=== PATIENT | female | born 1925 | race Caucasian/White ===

== ENCOUNTER 2016-06-20 21:51 | Observation (INO) | payer MEDICARE, BC ==
[2016-06-20 22:30] LABS: Hematocrit 32.9 % (37.0-47.0); Hemoglobin 10.9 gm/dL (12.5-16.0); Mean Cell Volume 89.9 fl (78-100); Mean Corpuscular Hemoglobin 29.8 pg (27-31); Mean Corpuscular Hgb Conc 33.1 g/dl (32-36); Neutrophil # 3.2 K/mm3 (1.3-6.0); Platelet Count 168 K/mm3 (150-450); Red Blood Count 3.66 M/mm3 (4.2-5.4); Red Cell Distribution Width 12.8 % (11.5-14.0); White Blood Count 5.2 K/mm3 (4.0-10.5)
--- NOTE | 2016-06-20 22:32 | ERNOTE ---
Head Injury HPI - Narrative Date of Service: 06/20/16 - General Time Seen by Provider: 06/20/16 21:58 - Immun/Allergies/Home Medications Immunization: IMMUNIZATION HX Immunizations Up to Date Yes History of Influenza Vaccine Yes Hx Pneumococcal Vaccination No Allergies/Adverse Reactions: Allergies Allergy/AdvReac Type Severity Reaction Status Date / Time morphine Allergy Verified 06/20/16 22:06 propoxyphene napsylate Allergy Verified 06/20/16 22:06 [From [facility]] Home Medications: HOME MEDICATIONS Aspirin [Brant Chewable Aspirin] 81 mg PO DAILY 11/07/14 [Last Taken Unknown] Cholecalciferol [Vitamin D] 5,000 unit PO DAILY 11/07/14 [Last Taken Unknown] Metoprolol Succinate [Toprol Xl] 50 mg PO BID 11/07/14 [Last Taken Unknown] Acetaminophen [Tylenol] 1 - 2 tab PO Q4H PRN 01/23/15 [Last Taken Unknown] Losartan Potassium [Cozaar] 100 mg PO HS 01/23/15 [Last Taken Unknown] Omeprazole [Prilosec] 40 mg PO DAILY 12/21/15 [Last Taken Unknown] metFORMIN HCL [Glucophage] 1,000 mg PO BIDWM 12/21/15 [Last Taken Unknown] Beta-Carotene(A) W-C , E/Min [Ocuvite] 1 tab PO BID 06/20/16 [Last Taken Unknown ] Betamethasone Dipropionate 1 appl TP 2XW 06/20/16 [Last Taken Unknown] Calcium Carbonate [Tums] 500 mg PO Q2H PRN 06/20/16 [Last Taken Unknown] Mirabegron [Myrbetriq] 25 mg PO DAILY 06/20/16 [Last Taken Unknown] Nystatin 15 gm TP PRN PRN 06/20/16 [Last Taken Unknown] Polyethylene Glycol 3350 [Miralax] 17 gm PO TID 06/20/16 [Last Taken Unknown] Propylene Glycol/Peg 400 [Systane 0.3-0.4% Eye Drops] 1 drop EACHEYE BID [Last Taken Unknown] traZODone HCL [Desyrel] 100 mg PO HS 06/20/16 [Last Taken Unknown] - History of Present Illness Narrative: STATES SHE WAS 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 SHE DENIES LOC OR NECK PAIN OR ANY N & V. SHE DENIES OTHER INJURY. THE GROUP HOME STAFF THOUGHT SHE HAD A LITTLE SLURRED SPEECH WHICH SHE DENIES. SHE SAYS SHE HAS BEEN FEELING WEAK AND TIRED FOR THE PAST 3 WEEKS. HER PCP DX'D HER WITH UTI AND THIS PAST WEEK SHE WENT TO SEE THE UROLOGIST WHO TOLD HER HER URINE WAS CLEAR (21 MAY 2016 = NORMAL URINE ) AND HE ORDERED A CT ABD/ PEL WHICH SHE HAD DONE YESTERDAY. SHE DOES NOT KNOW RESULTS ( IT SHOWED POSSIBLE NEW COLON LESION SUSPICIOUS FOR NEOPLASM AT HEPATIC FLEXURE) DR Everton MATHIAS WAS SUPPOSED TO FOLLOW UP WITH HER ON THE RESULTS. SHE DENIES ANY RECENT MEDICATION CHANGES OR OTHER SPECIFIC COMPLAINTS. Occurred: just prior to arrival Location Occurred: home - [facility]IV[facility] Head Injury Location: frontal Method of Injury: Reports: fell Reason for Fall: Reports: slipped Loss of Consciousness: Reports: no loss of consciousness Associated Symptoms: Reports: denies symptoms Review of Systems - Review of Systems Constitutional: Present: See HPI, weakness, fatigue EYE: Present: no symptoms reported ENT: Present: no symptoms reported Respiratory: Present: no symptoms reported Cardiology: Present: no symptoms reported Gastrointestinal/Abdominal: Present: no symptoms reported Genitourinary: Present: no symptoms reported, See HPI Musculoskeletal: Present: no symptoms reported Skin: Present: other - NEW FOREHEAD HEMATOMA Neurological: Present: See HPI. Absent: dizziness/light-headedness, weakness, numbness, tingling Endocrine: Present: no symptoms reported Hematologic/Lymphatic: Present: no symptoms reported Psych: Present: no symptoms reported All Other Systems: All systems neg except as marked - Patient's Past Medical History Patient History - Medical: Anxiety, Diabetes Type 2, Depression, GERD, Hypothyroidism, Osteoarthritis, Osteoporosis, Renal Disease, UTI'S Patient History - Cardiac/Respiratory: Bronchitis, Hypertension, Hyperlipidemia Patient History - Cancer: Colon Patient History - Surgical Procedures: Appendectomy, Colon Resection, Hysterectomy, Total Knee Replacement, T & A Patient History - Other: None LMP (females 10-50): Menopausal - Family History Mother Family History - Medical: , Diabetes Type 2 Father Family History - Medical: Family History - Cardiac/Respiratory: Coronary Heart Disease - Social History Living Situations: assisted living Psych History: Hx of Anxiety, Hx of Depression Alcohol Use: none Drug Use: none - Immunizations Immunizations Up to Date: Yes Hx Pneumococcal Vaccination: No History of Influenza Vaccine: Yes Physical Exam - Physical Exam General Appearance: Present: wd/wn, alert, no apparent distress, other - PT IS A & O X 3. SHE IS A FRAIL ELDERLY 89 YO LADY WHO IS JOKING ABOUT JUST HAVING HER 24ND BIRTHDAY, SHE WAS BORN ON May. Eye Exam: Normal inspection: bilateral, PERRL: bilateral, EOMI: bilateral Ears, Nose, Throat: Present: normal ENT inspection, normal pharynx Neck: Present: normal inspection, nontender Respiratory: Present: no respiratory distress, normal breath sounds, no accessory muscle use, chest nontender, lungs clear Cardiovascular/Chest: Present: regular rate, rhythm, no murmur, normal peripheral pulses Gastrointestinal/Abdominal: Present: normal bowel sounds, nontender, nondistended, soft, no organomegaly Back Exam: Present: no vertebral tenderness Extremity Exam: Present: normal inspection, non-tender, normal range of motion, no edema, other - SHE DOES HAVE RECENT , BUT NOT ACUTE, SUPERFICIAL ABRASION TO RIGHT PATELLA Neurological Exam: Present: alert, oriented, normal mood/affect, no motor/ sensory deficits, 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 NO BLEEDING. ED Progress - Results and Orders Patient's Lab Results:: I have reviewed the patient's lab results. Results and Orders: Hgb is 10.9 which is lower than her most recent values in 03/2016 ( 13) and 2016 ( 11.7). Current K+ = 5.4 with bun/creat = 32/1.58 and TSH = sl . elevated at 4.03 - Vital Signs Vital Signs: Vital Signs 06/20/16 06/20/16 21:51 22:06 Temperature 36.4 C L Pulse Rate 73 80 Respiratory 18 Rate Blood Pressure 146/53 O2 Sat by Pulse 95 Oximetry - CT/Ultrasound CT/Ultrasound Narrative: HEAD CT = NEGATIVE FOR ACUTE ABNORMALITIES IS HER CERVICAL CT. - Progress/Reassessment Chief Complaint: Head Injury Progress:: Unchanged Plan - Plan Plan: D/W HOSPITALIST , DR MUNROE , FOR OBS ADMIT , WILL GIVE IV N.S. AND PLAN IS TO FOLLOW HER CLOSED HEAD INJURY AND RECHECK HER BMP TO SEE IF K+ AND BUN/CREAT IMPROVE WITH HYDRATION. I EXPLAINED THIS TO THE PT. ( I HAVE NOT MENTIONED THE ABD CT FINDINGS TO THE PT THOUGH HOSPITALIST IS AWARE. Departure Clinical Impression: Acute hyperkalemia, Azotemia, Anemia Head contusion Qualifiers: Encounter type: initial encounter Contusion of head detail: other part of head Qualified Code(s): S00.83XA - Contusion of other part of head, initial encounter - Departure Disposition: [facility] Condition: Fair Referrals: Selma Martinez DO [Staff Physician] -
[2016-06-20 22:55] LABS: Albumin * 3.5 gm/dl (3.4-5.0); Anion Gap 16.7 mmol/L (6.8-13.8); BUN/Creatinine Ratio 20.3 (9.0-21.6); Bilirubin, Total 0.3 mg/dL (0.0-1.1); Ca. Corrected For Albumin 9.1 mg/dL (8.4-10.2); Carbon Dioxide 22.7 mmol/L (24-32.6); Potassium 5.4 mmol/L (3.4-4.6); TSH * 4.036 uIU/mL (0.358-3.74); Total Protein 6.4 gm/dL (6.2-8.2)
[2016-06-21 00:07] LABS: Urine Bilirubin Negative (NEGATIVE); Urine Blood Negative /ul (NEGATIVE); Urine Ketone 5 mg/dL (NEGATIVE); Urine Nitrite Negative (NEGATIVE); Urine Protein Negative (NEGATIVE); Urine Specific Gravity 1.025 SP.GR. (1.005-1.010); Urine Urobilinogen Normal (NORMAL); Urine pH 5.5 pH (5.0-7.0)
--- OUTSIDE RECORDS SUMMARY | 2016-06-21 00:09 | XMS REPORT | Continuity of Care Document ---
:1925 Demographics Phone Unavailable Preferred Language Unknown Marital Status Unknown Confucianist Affiliation Unknown Race Unknown Ethnic Group Unknown Author Organization [facility] ([facility]) Address [place] [address] Phone [phone] Care Team Providers Name Role Phone Unavailable Primary Care Provider Unavailable Source Comments This disclosure is being made pursuant to the Care Everywhere program, applicable federal and state laws, and may not contain all informaitonavailable regarding this patient.[facility] ([facility]) Active Allergies and Adverse Reactions Not on File Current Medications Not on file Active Problems Not on file Social History Tobacco Use Types Packs/Day Years Used Date Never Assessed Plan of Care Health Maintenance Due Date Last Done Comments Hepatitis B Vaccine (1 of 3 - Primary Series) 1925 Tdap Vaccine 06/16/1938 Lipid Disorder Screening 06/16/1945 Td Vaccine 06/16/1945 Zoster Vaccine 1987 Pneumococcal Vaccine (1 of 2 - PCV13) 06/16/1992 Influenza Vaccine: Seasonal (#1) 11/18/2015 Results from Last 3 Months Not on file
--- OUTSIDE RECORDS SUMMARY | 2016-06-21 00:09 | XMS REPORT | Continuity of Care Document ---
:1925 Author Organization [facility] [place] [address] Care Team Providers Name Role Phone Marianne Tiffany M Primary Care Provider [phone] Source Comments This disclosure is being made pursuant to the [employer] program and maynot contain all information available regarding this patient.[facility] Active Allergies and Adverse Reactions No Known Allergies Current Medications Be aware that medications may not be up to date as of this document. Alwaysverify current medications with the patient. Prescription Sig. Disp. Refills Start Date End Date Status Ascorbic Acid (VITAMIN C) Take 500 mg by Active 500 MG tablet mouth daily. aspirin 81 MG tablet Take 81 mg by Active mouth daily. glucose blood test strip REAGENT STRIPS Active TESTS BID conjugated estrogens Place vaginally. Active (PREMARIN) vaginal cream dexlansoprazole (DEXILANT) Take 60 mg by Active 60 MG capsule mouth daily. diphenhydrAMINE (BENADRYL) Take 25 mg by Active 25 MG tablet mouth. One every 6 hours po prn ferrous sulfate 325 (65 Take by mouth Active FE) MG TABS tablet daily. SEAN MICROLET LANCETS MICROLET LANCETS Active lancets TESTING BID losartan-hydrochlorothiazi Take by mouth Active de (HYZAAR) 50-12.5 MG per daily. tablet metFORMIN (GLUCOPHAGE) 850 Take 850 mg by Active MG tablet mouth 2 (two) times daily. metoprolol tartrate Take 25 mg by Active (LOPRESSOR) 25 MG tablet mouth daily. potassium chloride Take 10 mEq by Active (MICRO-K) 10 MEQ CR mouth daily. capsule simvastatin (ZOCOR) 40 MG Take 40 mg by Active tablet mouth daily. dabigatran (PRADAXA) 150 Take 100 mg by Active MG capsule mouth. Cholecalciferol (VITAMIN D Take by mouth. Active PO) vitamin E 100 UNIT capsule Take by mouth. Active vitamin B-12 Inject as Active (CYANOCOBALAMIN) 1000 directed. MCG/ML injection SitaGLIPtin Phosphate Take by mouth. Active (JANUVIA PO) sitaGLIPtin (JANUVIA) 100 Take 100 mg by Active MG tablet mouth daily. Active Problems No known active problems Most Recent Encounters Date Type Specialty Providers Description 04/02/2016 Data Import Immunizations Name Dates Previously Given Next Due Influenza Split 02/08/2014,12/19/2011 Pneumococcal Polysaccharide-23 04/19/2007 Social History Tobacco Use Types Packs/Day Years Used Date Never Smoker Smokeless Tobacco: Never Used Last Filed Vital Signs Vital Sign Reading Time Taken Blood Pressure 121/64 03/06/2014 10:28 AM LABOR ECONOMIST Pulse 60 03/06/2014 10:28 AM LABOR ECONOMIST Temperature - - Respiratory Rate - - Height 1.524 m (5') 03/06/2014 10:28 AM LABOR ECONOMIST Weight 58.832 kg (129 lb 11.2 oz) 03/06/2014 10:28 AM LABOR ECONOMIST Body Mass Index 25.33 03/06/2014 10:28 AM LABOR ECONOMIST Oxygen Saturation - - Plan of Care Health Maintenance Due Date Last Done Comments Eye (Ophthalmology) Exam 06/16/1937 Foot Exam 06/16/1937 Lab-Urine Microalbumin 06/16/1937 Tetanus/Pertussis (1 - Tdap) 06/16/1946 Well Adult Visit 06/16/1977 Zoster Vaccine 60+ 1987 Bone Density 06/16/1992 Pneumococcal Low/Medium Risk 65+ (2 04/19/2008 04/19/2007 of 2 - PCV13) LAB-HgA1C 08/22/2014 02/22/2014, 01/25/2014, 08/21/2013 Lab-Lipids 01/25/2015 01/25/2014 Influenza Immunization (#1) 2015 02/08/2014, 12/19/2011 Results from Last 3 Months Not on file
[2016-06-21 00:16] LABS: Urine Appearance Clear; Urine Bacteria None Seen; Urine Color Yellow; Urine RBC 0-5 /hpf (0-5); Urine WBC 0-5 /hpf (0-5)
[2016-06-21] MEDS: NORMAL SALINE 1,000 ML IV PRN ×2 (01:09→09:41)
--- NOTE | 2016-06-21 01:35 | HP ---
Chief Complaint - Chief Complaint Date of Service: 06/21/16 Time of Service: 01:02 Chief Complaint: Head contusion History of Present Illness: 89 years old female adm to the hospital with reports of head contusion s/p fall at assisted living facility. pt stated she have been very lethargic x 3-4 weeks. Due to generalized weakness she belief that was the reason she fell. She report frontal head pain with hematoma, dizziness and denies LOC, seizure activist, headache, chest pain blurred vision or palpitation. Pt stated for the past 3 weeks she had no appetite and her abdomen haven't been feeing well. She was seen by urologist for follow Up from UTI and was schedule for CT. On 06/19/16 CT Abdomen and pelvic: Early apple core lesion within the proximal hepatic flexure, concerning for early neoplasm. PMH significant for colon cancer in 2013 had colon resection, iron deficiency anemia with hgb gradually trending down since 04/03. 04/03 Hgb 13.0--->05/05 hgb 11.7---->07/03 hgb10.9. Hypertension, diabetes, hyperlipidemia, depression , GERD and UTI. In ER TSH 4.0 off baseline of 2.2 back in 05/05. Plan for out-pt follow up with GI service for colonoscopy. Plan of care discussed with pt she verbalized understanding and agree. - Patient's Past Medical History Patient History - Medical: Anemia - iron deficiency, Anxiety, Diabetes Type 2, Depression, GERD, Hypothyroidism, Osteoarthritis, Osteoporosis, Renal Disease, UTI'S, Other - candidal intertrigo, chronic constipation, lichen sclerosus Patient History - Cardiac/Respiratory: Bronchitis, Hypertension, Hyperlipidemia Patient History - Cancer: Colon Patient History - Surgical Procedures: Appendectomy, Colon Resection - 2013, Hysterectomy, Total Knee Replacement - Left knee, tonsillectomy, vulvar biopsy, T & A Patient History - Other: None LMP (females 10-50): Menopausal - Family History Mother Family History - Medical: , Diabetes Type 2 Father Family History - Medical: Family History - Cardiac/Respiratory: Coronary Heart Disease - Social History Living Situations: assisted living Psych History: Hx of Anxiety, Hx of Depression Smoking Status: Never smoker Have you smoked in the past 12 months: No Do you dip or chew tobacco: No Patient requests Smoking Cessation Consult: No Initiate information on Smoking Cessation: No Alcohol Use: none Drug Use: none - Immunizations Immunizations Up to Date: Yes Hx Pneumococcal Vaccination: No History of Influenza Vaccine: Yes Review Of Systems (GEN) - Review of Systems Generalized/Overall Review: Present: No Symptoms Reported EENTM: Present: Other - Hard of hearing Respiratory: Present: No Symptoms Reported Cardiac: Present: No Symptoms Reported Abdominal: Present: No Symptoms Reported Genitourinary: Present: No Symptoms Reported Musculoskeletal: Present: No Symptoms Reported Neurological: Present: No Symptoms Reported Skin: Present: Other - frontal hematoma Endocrine: Present: No Symptoms Reported Immunizations: IMMUNIZATION HX Immunizations Up to Date Yes History of Influenza Vaccine Yes Hx Pneumococcal Vaccination No Allergies/Adverse Reactions: Allergies Allergy/AdvReac Type Severity Reaction Status Date / Time morphine Allergy Verified 06/20/16 22:06 propoxyphene napsylate Allergy Verified 06/20/16 22:06 [From [facility]] Home Medications: HOME MEDICATIONS Aspirin [Brant Chewable Aspirin] 81 mg PO DAILY 11/07/14 [Last Taken Unknown] Cholecalciferol [Vitamin D] 5,000 unit PO DAILY 11/07/14 [Last Taken Unknown] Metoprolol Succinate [Toprol Xl] 50 mg PO DAILY 11/07/14 [Last Taken Unknown] Acetaminophen [Tylenol] 1 - 2 tab PO Q4H PRN 01/23/15 [Last Taken Unknown] Losartan Potassium [Cozaar] 100 mg PO HS 01/23/15 [Last Taken Unknown] Omeprazole [Prilosec] 40 mg PO BID 12/21/15 [Last Taken Unknown] metFORMIN HCL [Glucophage] 1,000 mg PO BIDWM 12/21/15 [Last Taken Unknown] Beta-Carotene(A) W-C , E/Min [Ocuvite] 1 tab PO BID 06/20/16 [Last Taken Unknown ] Betamethasone Dipropionate 1 appl TP 3XW 06/20/16 [Last Taken Unknown] Calcium Carbonate [Tums] 500 mg PO Q2H PRN 06/20/16 [Last Taken Unknown] Mirabegron [Myrbetriq] 25 mg PO DAILY 06/20/16 [Last Taken Unknown] Nystatin 15 gm TP PRN PRN 06/20/16 [Last Taken Unknown] Polyethylene Glycol 3350 [Miralax] 17 gm PO TID PRN 06/20/16 [Last Taken Unknown ] Propylene Glycol/Peg 400 [Systane 0.3-0.4% Eye Drops] 1 drop EACHEYE BID [Last Taken Unknown] traZODone HCL [Desyrel] 100 mg PO HS 06/20/16 [Last Taken Unknown] Exam - Exam Vital Signs: Vital Signs - Last Taken Temp 36.3 C L 06/21/16 00:17 Pulse 71 06/21/16 00:17 Resp 20 06/21/16 00:17 BP 149/54 06/21/16 00:17 Pulse Ox 97 06/21/16 00:17 Constitutional: Present: Alert, Oriented x3, Cooperative, Well developed, No distress, Elderly ENT Exam: Present: hard of hearing Eye Exam: bilateral eye: PERRL Neck: Present: non-tender, full range of motion Back Exam: Present: no CVA tenderness Breasts: Present: Exam deferred Respiratory: Present: chest non-tender, lungs clear, normal breath sounds, no respiratory distress Cardiovascular/Chest: Present: normal peripheral pulses, regular rate, rhythm, no chest tenderness, no edema Peripheral Pulses: dorsalis-pedis (R): 3+, dorsalis-pedis (L): 3+ Abdomen: Present: Normal bowel sounds, soft, nontender, nondistended, no rebound tenderness /Rectal: Present: Exam deferred Extremity: Present: normal range of motion, non-tender, normal inspection, no pedal edema, no calf tenderness Skin Exam: Present: warm/dry, no cyanosis, other - frontal hematoma Neurologic: Present: oriented x 3 Appearance: Present: appropriate appearance Eye contact: Present: cooperative, good eye contact Thoughts: Present: normal thought pattern Diagnostic Studies: Laboratory Results WBC 5.2 K/mm3 (4.0-10.5) 06/20/16 22:18 RBC 3.66 M/mm3 (4.2-5.4) L 06/20/16 22:18 Hgb 10.9 gm/dL (12.5-16.0) L 06/20/16 22:18 Hct 32.9 % (37.0-47.0) L 06/20/16 22:18 MCV 89.9 fl (78-100) 06/20/16 22:18 MCH 29.8 pg (27-31) 06/20/16 22:18 MCHC 33.1 g/dl (32-36) 06/20/16 22:18 RDW 12.8 % (11.5-14.0) 06/20/16 22:18 Plt Count 168 K/mm3 (150-450) 06/20/16 22:18 MPV 9.0 fl (6.0-9.5) 06/20/16 22:18 Immature Gran % (Auto) 0.40 % (0.001-0.429) 06/20/16 22:18 Immature Gran # (Auto) 0.02 K/mm3 (0.000-0.0310) 06/20/16 22:18 Neutrophils % 61.0 % (42-75.0) 06/20/16 22:18 Lymphocytes % 28.4 % (20-51) 06/20/16 22:18 Monocytes % 6.3 % (0.0-9) 06/20/16 22:18 Eosinophils % 3.5 % (0.0-3.0) H 06/20/16 22:18 Basophils % 0.4 % (0.0-1.0) 06/20/16 22:18 Nucleated RBC % 0.0 k/mm3 (0-1) 06/20/16 22:18 Neutrophils # 3.2 K/mm3 (1.3-6.0) 06/20/16 22:18 Lymphocytes # 1.5 k/mm3 (1.5-3.5) 06/20/16 22:18 Monocytes # 0.3 k/mm3 (0.0-1.0) 06/20/16 22:18 Eosinophils # 0.2 k/mm3 (0.0-0.7) 06/20/16 22:18 Absolute Basophils 0.0 k/mm3 (0.0-0.1) 06/20/16 22:18 Sodium 137 mmol/L (132-142) 06/20/16 22:25 Plasma Sodium 137 mmol/L (130-142) 06/20/16 22:25 Potassium 5.4 mmol/L (3.4-4.6) H 06/20/16 22:25 Chloride 103 mmol/L (97-106) 06/20/16 22:25 Carbon Dioxide 22.7 mmol/L (24-32.6) L 06/20/16 22:25 Anion Gap 16.7 mmol/L (6.8-13.8) H 06/20/16 22:25 BUN 32 mg/dL (3-23) H 06/20/16 22:25 Creatinine 1.58 mg/dL (0.4-1.4) H D 06/20/16 22:25 Est GFR (Non-Af Amer) 33 mL/min (60-130) L D 06/20/16 22:25 BUN/Creatinine Ratio 20.3 (9.0-21.6) 06/20/16 22:25 Random Glucose 122 mg/dL (70-110) H 06/20/16 22:25 Calcium 9.0 mg/dL (7.9-10.9) 06/20/16 22:25 Calcium Adj for Albumin 9.1 mg/dL (8.4-10.2) 06/20/16 22:25 Total Bilirubin 0.3 mg/dL (0.0-1.1) 06/20/16 22:25 AST 16 U/L (0-48) 06/20/16 22:25 ALT 28 U/L (19-67) 06/20/16 22:25 Alkaline Phosphatase 56 U/L (50-170) 06/20/16 22:25 Total Protein 6.4 gm/dL (6.2-8.2) 06/20/16 22:25 Albumin 3.5 gm/dl (3.4-5.0) 06/20/16 22:25 TSH 4.036 uIU/mL (0.358-3.74) H 06/20/16 22:25 Urine Color Yellow 06/20/16 23:58 Urine Appearance Clear 06/20/16 23:58 Urine pH 5.5 pH (5.0-7.0) 06/20/16 23:58 Ur Specific Corrigan 1.025 SP.GR. (1.005-1.010) 06/20/16 23:58 Urine Protein Negative mg/dL (NEGATIVE) 06/20/16 23:58 Urine Glucose (UA) Negative mg/dL (NEGATIVE) 06/20/16 23:58 Urine Ketones 5 mg/dL (NEGATIVE) 06/20/16 23:58 Urine Blood Negative /ul (NEGATIVE) 06/20/16 23:58 Urine Nitrate Negative (NEGATIVE) 06/20/16 23:58 Urine Bilirubin Negative mg/dl (NEGATIVE) 06/20/16 23:58 Urine Urobilinogen Normal EU/dl (NORMAL) 06/20/16 23:58 Ur Leukocyte Esterase Negative /ul (NEGATIVE) 06/20/16 23:58 Urine RBC 0-5 /hpf (0-5) 06/20/16 23:58 Urine WBC 0-5 /hpf (0-5) 06/20/16 23:58 Ur Epithelial Cells 0-5 /hpf (0-5) 06/20/16 23:58 Urine Bacteria None seen (NONE) 06/20/16 23:58 Urine Culture Comments No culture indicated 06/20/16 23:58 Assessment/Plan - Narrative Narrative: Head contusion S/P fall at assisted living facility CT head: No acute intra -cranial abnormality CT Cervical spine: pending Neuro check Q4hrs Hyperkalemia- secondary to azotemia On adm K+ 5.4, BUn/ cre 32/1.6 elevated from pt baseline on last adm IVF rehydration Monitor BMP in am Anemia- pt with reports of increase lethargia x3 weeks 04/03 Hgb 13.0--->05/05 hgb 11.7--->07/03 hgb 10.9 Hypertension On adm BP 149/54 Monitor vitals signs may resume home dose of medications Diabetes Consistent carb diet Acc-check AC+Hs and low dose SSI May resume home dose of medications 04/2016---> A1C 9 Colon cancer 2013 S/P colon resection 06/2016 CT Abd pelvic: Probable early apple core lesion within the proximal hepatic flexure, concerning for early neoplasm Consult GI service for possible out-pt colonoscopy ? Hypothyroidism on adm TSH 4.0 last adm TSH was 2.24 Repeat TSH and T4 in am Code status : VTE ppx: SCD and ambulate GI ppx: protonix Anticipate discharge 0-1 day and follow up with Dr Moncada and . Need colonoscopy Time 35 minutes - Assessment/Plan (1) Head contusion Problem: Acute Qualifiers: Encounter type: initial encounter Contusion of head detail: other part of head Qualified Code(s): S00.83XA - Contusion of other part of head, initial encounter (2) Acute hyperkalemia Problem: Acute (3) Anemia Problem: Chronic Qualifiers: Anemia type: iron deficiency (4) Azotemia Problem: Acute (5) Diabetes mellitus, type II Problem: Chronic (6) Hypertension Problem: Chronic Qualifiers: Hypertension type: essential hypertension Qualified Code(s): I10 - Essential (primary) hypertension
[2016-06-21] MEDS ORDERED: NYSTATIN 15 APPL BTL TP PRN (03:09)
[2016-06-21] MEDS ORDERED: CALCIUM CARBONATE 500 MG TAB.CHEW PO PRN (03:09)
[2016-06-21] MEDS ORDERED: POLYETHYLENE GLYCOL 3350 119 GM BTL PO PRN ×2 (03:30→12:14)
[2016-06-21 05:57] LABS: Albumin * 3.1 gm/dl (3.4-5.0); Anion Gap 14.9 mmol/L (6.8-13.8); BUN/Creatinine Ratio 19.9 (9.0-21.6); Bilirubin, Total 0.4 mg/dL (0.0-1.1); Ca. Corrected For Albumin 9.2 mg/dL (8.4-10.2); Calcium * 8.8 mg/dL (7.9-10.9); Carbon Dioxide 24.3 mmol/L (24-32.6); Potassium 5.2 mmol/L (3.4-4.6); T4 Free * 1.06 ng/dL (0.76-1.46); TSH * 2.978 uIU/mL (0.358-3.74); Total Protein 5.8 gm/dL (6.2-8.2)
[2016-06-21] MEDS: PANTOPRAZOLE SODIUM 40 MG TABLET.EC PO SCH ×2 (06:50→17:17)
[2016-06-21] MEDS: INSULIN LISPRO 100 UNITS/ML VIAL SC SCH ×3 (06:50→17:14)
[2016-06-21] MEDS ORDERED: BETA-CAROTENE(A) W-C , E/MIN 1 TAB TABLET PO SCH (09:00)
[2016-06-21] MEDS ORDERED: POLYVINYL ALCOHOL 150 DROP BTL EACHEYE SCH ×2 (09:00→21:00)
[2016-06-21] MEDS ORDERED: METOPROLOL SUCCINATE 25 MG TABLET.SA PO SCH (09:00)
[2016-06-21] MEDS ORDERED: CHOLECALCIFEROL 5,000 UNIT TABLET PO SCH (09:00)
[2016-06-21 12:21] LABS: Anion Gap 15.6 mmol/L (6.8-13.8); BUN/Creatinine Ratio 20.3 (9.0-21.6); Calcium * 8.7 mg/dL (7.9-10.9); Carbon Dioxide 23.6 mmol/L (24-32.6); Estimated Creat Clear 19.9; Potassium 5.2 mmol/L (3.4-4.6)
--- NOTE | 2016-06-21 12:44 | DS ---
(1) fall with Left frontal hematoma Problem: Acute (2) Anemia Diagnosis(s): H/H 13/38.1[03/30/2016] --> 10.9/32.9[06/20/2016]. Problem: Chronic Qualifiers: Anemia type: iron deficiency (3) Hypertension Problem: Chronic Qualifiers: Hypertension type: essential hypertension Qualified Code(s): I10 - Essential (primary) hypertension (4) T2DM (type 2 diabetes mellitus) Problem: Chronic (5) Colon cancer Diagnosis(s): S/P resection -2013. Problem: Chronic Qualifiers: Colon location: unspecified part of colon Qualified Code(s): C18.9 - Malignant neoplasm of colon, unspecified Description of Stay: DATE OF ADMISSION: 06/20/2016. DATE OF DISCHARGE: 06/21/2016. DIAGNOSTICS: CT HEAD W/O: 06/20/2016. CT CERVICAL SPINE: 06/20/2016. HOSPITAL COURSE: Patria De La Vega is a 89-year-old WF with a H/O HTN, T2DM, HLD, colon CA, GERD, OA with LT TKA who lives at the [facility] was brought in to the ER for evaluation of a fall due to generalized weakness which was worsening over the last 1 month. She denied any history of headaches, LOC, blurred vision, syncopal episodes etc. She was mildly dehydrated with increased BUN/CR 32/1.58 [ 06/20/16] which improved to 25/1.23[06/2016] with IV fluids. She does admit to poor water/fluid intake. She underwent a CT head W/O contrast [06/20/16] which showed scattered periventricular and subcortical white matter hypodensities c/w chronic microvascular ischemic white matter disease. There is a left frontal focal scalp swelling with no underlying fracture. A CT cervical spine W/O contrast [06/20/16] showed extensive endplate and facet DJD throughout the cervical spine, most severe at C5-C6 and C6-C7 levels. No acute fractures/dislocation. Patient complained of loss of appetite and vague abdominal discomfort for the last 3-4 weeks. Review of labs showed a decrease in H&H from 13/38.1[03/30/16] to 10.9/32.9[06/20/16]. She had seen Dr. Han [Urologist] on 3/3/17 for UTI caused by Proteus. She underwent a CT of abdomen/pelvis W/O contrast on the same day that showed possible early apple core lesion within proximal hepatic flexure which was concerning for early neoplasm and a colonoscopy was recommended. This was discussed in detail with the patient and her daughter who is a nurse who was present at that time. The patient was discharged in a stable condition with a follow with PCP in the next 2-5 days. A total of 70 minutes was spent[[id number] encounter with the patient and family discussing test results and treatment options] discharge planning, plan of care, reconciliation of medications, preparing and dictating discharge summary. Procedures Performed: none Results and Findings: Laboratory Tests 03/30/16 05/01/16 06/20/16 09:54 05:30 22:18 WBC 9.2 6.2 5.2 Hgb 13.0 11.7 L 10.9 L Hct 38.1 33.8 L 32.9 L Plt Count 224 198 168 06/20/16 06/21/16 06/21/16 22:25 05:25 12:03 Plasma Sodium 137 139 140 Potassium 5.4 H 5.2 H 5.2 H Chloride 103 105 105 Carbon Dioxide 22.7 L 24.3 23.6 L BUN 32 H 28 H 25 H Creatinine 1.58 H D 1.41 H 1.23 Est GFR (Non-Af Amer) 33 L D 37 L 44 L Total Bilirubin 0.3 0.4 AST 16 15 ALT 28 24 Alkaline Phosphatase 56 47 L Total Protein 6.4 5.8 L Albumin 3.5 3.1 L TSH 2.978 Free T4 1.06 Discharge Disposition: [facility] Disposition: [facility] Condition: Undetermined Discharge Activity: Activity as tolerated Discharge Diet: Consistent carbs, High Fiber - increase water intake Referrals: Selma Martinez DO [Staff Physician] - Problem Oriented Discharge Instructions to Patient/Family: Hyperkalemia, Easy- to-Read, Dehydration, Adult, [id number] Additional Patient Instructions (free text): Appointment with Dr. Martinez in 2-7 days to discuss abnormal CAT scan of abdomen/ pelvis. Increase water intake. Complete Home Medications List: Complete Home Medication List: Aspirin [Brant Chewable Aspirin] 81 mg PO DAILY 11/07/14 Cholecalciferol [Vitamin D] 5,000 unit PO DAILY 11/07/14 Metoprolol Succinate [Toprol Xl] 50 mg PO DAILY 11/07/14 Acetaminophen [Tylenol] 1 - 2 tab PO Q4H PRN 01/23/15 Losartan Potassium [Cozaar] 100 mg PO HS 01/23/15 Omeprazole [Prilosec] 40 mg PO BID 12/21/15 metFORMIN HCL [Glucophage] 1,000 mg PO BIDWM 12/21/15 Beta-Carotene(A) W-C , E/Min [Ocuvite] 1 tab PO BID 06/20/16 Betamethasone Dipropionate 1 appl TP 3XW 06/20/16 Calcium Carbonate [Tums] 500 mg PO Q2H PRN 06/20/16 Mirabegron [Myrbetriq] 25 mg PO DAILY 06/20/16 Nystatin 15 gm TP PRN PRN 06/20/16 Polyethylene Glycol 3350 [Miralax] 17 gm PO TID PRN 06/20/16 Propylene Glycol/Peg 400 [Systane 0.3-0.4% Eye Drops] 1 drop EACHEYE BID traZODone HCL [Desyrel] 100 mg PO HS 06/20/16
[2016-06-21 13:38] VITALS: BP 152/56
[2016-06-21] MEDS ORDERED: LOSARTAN POTASSIUM 50 MG TABLET PO SCH (21:00)
== END 2016-06-21 19:30 | disposition home or self-care (01) ==
LOC: ER 21:51 → MS 06-21 00:03
PROVIDERS: ADMIT Nurse Practitioner; ATTEND Internal Medicine
DX: S00.03XA Contusion of scalp, initial encounter (principal); W01.0XXA Fall on same level from slipping, tripping and stumbling without subsequent striking against object, initial encounter; Y92.193 Bedroom in other specified residential institution as the place of occurrence of the external cause; D64.9 Anemia, unspecified; E11.9 Type 2 diabetes mellitus without complications; R79.89 Other specified abnormal findings of blood chemistry; Z85.038 Personal history of other malignant neoplasm of large intestine; N39.0 Urinary tract infection, site not specified
CPT/HCPCS: 36415; 70450; 72125; 80048; 80053; 81001; 84439; 84443; 84481; 85025; 87081; 99284; G0378

== ENCOUNTER 2016-08-03 15:10 | Observation (INO) | payer MEDICARE, BC ==
--- OUTSIDE RECORDS SUMMARY | 2016-08-03 15:30 | XMS REPORT | Continuity of Care Document ---
:1925 Author Organization [employer] [place] [address] Care Team Providers Name Role Phone Marianne Tiffany M Primary Care Provider [phone] Source Comments This disclosure is being made pursuant to the walkby program and maynot contain all information available regarding this patient.[employer] Active Allergies and Adverse Reactions No Known [...] Recent Encounters Date Type Specialty Providers Description 07/16/2016 Data Import Immunizations Name Dates Previously Given Next Due Influenza Split 02/08/2014,12/19/2011 Pneumococcal Polysaccharide-23 04/19/2007 Social History Tobacco Use Types Packs/Day Years Used Date Never Smoker Smokeless Tobacco: Never Used Last Filed Vital Signs Vital Sign Reading Time Taken Blood Pressure 121/64 03/06/2014 10:[address] LIGHT INSPECTOR Pulse 60 03/06/2014 10:[address] LIGHT INSPECTOR Temperature - - Respiratory Rate - - Height 1.524 m (5') 03/06/2014 10:[address] LIGHT INSPECTOR Weight 58.832 kg (129 lb 11.2 oz) 03/06/2014 10:[address] LIGHT INSPECTOR Body Mass Index 25.33 03/06/2014 10:[address] LIGHT INSPECTOR Oxygen Saturation - - Plan of Care [...]
--- OUTSIDE RECORDS SUMMARY | 2016-08-03 15:30 | XMS REPORT | Continuity of Care Document ---
:1925 Demographics Phone Unavailable Preferred Language Unknown Marital Status Unknown Adventist Affiliation Unknown Race Unknown Ethnic Group Unknown Author Organization [facility] ([facility]) Address [place] [place] [address] Phone [phone] Care Team Providers Name Role Phone Unavailable Primary Care Provider Unavailable Source Comments This disclosure is being made pursuant to the Care Everywhere program, applicable federal and state laws, and may not contain all informaitonavailable regarding this patient.[facility] ([facility]) Active Allergies and Adverse Reactions Not on [...]
--- NOTE | 2016-08-03 15:38 | ERNOTE ---
Abdominal HPI - General Chief Complaint: General Assessment Time Seen by Provider: 08/03/16 15:26 Source: patient Exam Limitations: no limitations - Immun/Allergies/Home Medications Immunizatons: IMMUNIZATION HX Immunizations Up to Date Yes History of Influenza Vaccine Yes Hx Pneumococcal Vaccination No Allergies/Adverse Reactions: Allergies morphine Allergy (Verified 08/03/16 15:22) propoxyphene napsylate [From Darvocet-N] Allergy (Verified 08/03/16 15:22) Home Medications: HOME MEDICATIONS Aspirin [Brant Chewable Aspirin] 81 mg PO DAILY 11/07/14 [Last Taken Unknown] Cholecalciferol [Vitamin D] 5,000 unit PO DAILY 11/07/14 [Last Taken Unknown] Metoprolol Succinate [Toprol Xl] 50 mg PO DAILY 11/07/14 [Last Taken Unknown] Acetaminophen [Tylenol] 1 - 2 tab PO Q4H PRN 01/23/15 [Last Taken Unknown] Losartan Potassium [Cozaar] 100 mg PO HS 01/23/15 [Last Taken Unknown] Omeprazole [Prilosec] 40 mg PO BID 12/21/15 [Last Taken Unknown] metFORMIN HCL [Glucophage] 1,000 mg PO BIDWM 12/21/15 [Last Taken Unknown] Beta-Carotene(A) W-C , E/Min [Ocuvite] 1 tab PO BID 06/20/16 [Last Taken Unknown ] Betamethasone Dipropionate 1 appl TP 3XW 06/20/16 [Last Taken Unknown] Calcium Carbonate [Tums] 500 mg PO Q2H PRN 06/20/16 [Last Taken Unknown] Mirabegron [Myrbetriq] 25 mg PO DAILY 06/20/16 [Last Taken Unknown] Nystatin 15 gm TP PRN PRN 06/20/16 [Last Taken Unknown] Polyethylene Glycol 3350 [Miralax] 17 gm PO TID PRN 06/20/16 [Last Taken Unknown ] Propylene Glycol/Peg 400 [Systane 0.3-0.4% Eye Drops] 1 drop EACHEYE BID [Last Taken Unknown] traZODone HCL [Desyrel] 100 mg PO HS 06/20/16 [Last Taken Unknown] - History of Present Illness Narrative: Patient started vomiting this morning, vomited multiple times, denies abdominal pain or diarrhea. Currently she is not nauseated anymore but states that she is hungry and thirsty. Patient lives at the [facility], no further details are available. She has a history of colon cancer with resection. In early June she had a CT abdomen with showed an apple core lesion in the hepatic flexture concerning for a neoplasm, she is scheduled for a colonoscopy. Date (Duration): 08/03/16 Timing: resolved prior to arrival Review of Systems - Review of Systems Constitutional: Absent: recent illness, fever ENT: Present: nasal drainage Respiratory: Absent: shortness of breath, cough Cardiology: Absent: chest pain, palpitations Gastrointestinal/Abdominal: Present: vomiting. Absent: nausea, diarrhea, abdominal pain Genitourinary: Present: no symptoms reported Neurological: Absent: headache, weakness, numbness - Patient's Past Medical History Patient History - Medical: Anemia, Anxiety, Diabetes Type 2, Depression, GERD, Hypothyroidism, Osteoarthritis, Osteoporosis, Renal Disease, UTI'S, Other Patient History - Cardiac/Respiratory: Bronchitis, Hypertension, Hyperlipidemia Patient History - Cancer: Colon Patient History - Surgical Procedures: Appendectomy, Colon Resection, Hysterectomy, Total Knee Replacement, T & A Patient History - Other: None - Family History Mother Family History - Medical: , Diabetes Type 2 Father Family History - Medical: Family History - Cardiac/Respiratory: Coronary Heart Disease - Social History Living Situations: [facility] Abuse History: No History of abuse Psych History: Hx of Anxiety, Hx of Depression Alcohol Use: none Drug Use: none - Immunizations Immunizations Up to Date: Yes Hx Pneumococcal Vaccination: No History of Influenza Vaccine: Yes Physical Exam - Physical Exam General Appearance: Present: wd/wn, alert, no apparent distress Eye Exam: Normal inspection: bilateral Ears, Nose, Throat: Present: dry mucous membranes Respiratory: Present: no respiratory distress, no accessory muscle use, lungs clear, decreased breath sounds Cardiovascular/Chest: Present: regular rate, rhythm, no murmur Gastrointestinal/Abdominal: Present: normal bowel sounds, nontender, nondistended, soft Extremity Exam: Present: no edema Neurological Exam: Present: alert, oriented, normal mood/affect Skin Exam: Present: warm/dry, pallor ED Progress - Results and Orders Patient's Lab Results:: I have reviewed the patient's lab results. - Vital Signs Patient's Vital Signs:: I have reviewed the patient's vital signs. Vital Signs: Vital Signs 08/03/16 15:16 Temperature 36.6 C Pulse Rate 92 Respiratory 15 Rate Blood Pressure 184/83 O2 Sat by Pulse 97 Oximetry - X-Ray X-Ray #1 X-Ray: abdomen - non specific bowel gas pattern with dilated bowel loops Interpretation: Interp. by me - CT/Ultrasound CT/Ultrasound Narrative: CT abdomen/pelvis: no acute - Progress/Reassessment Chief Complaint: General Assessment Progress Note-Subjective: 08/03/16 17:30 patient meeting sepsis criteria with elevated temp and HR>90, LA elevated last urine culture grew proteus pansensitive 08/03/16 18:10 explained results to patient and son 08/03/16 21:[address] results with patient and son, recommended admission, patient agreed repeat LA improved 08/03/16 21:21 discussed with renato Renee to admit for UTI with sepsis Departure - Departure Clinical Impression: Sepsis secondary to UTI Disposition: [facility] Condition: Good Referrals: Selma Martinez DO [Primary Care Provider] -
[2016-08-03 15:53] LABS: Hematocrit 35.3 % (37.0-47.0); Hemoglobin 12.6 gm/dL (12.5-16.0); Mean Cell Volume 86.9 fl (78-100); Mean Corpuscular Hgb Conc 35.7 g/dl (32-36); Mean Platelet Volume 9.7 fl (6.0-9.5); Neutrophil % 88.7 % (42-75.0); Platelet Count 202 K/mm3 (150-450); Red Blood Count 4.06 M/mm3 (4.2-5.4); Red Cell Distribution Width 12.8 % (11.5-14.0); White Blood Count 9.1 K/mm3 (4.0-10.5)
[2016-08-03 16:17] LABS: Albumin * 4.1 gm/dl (3.4-5.0); BUN/Creatinine Ratio 18.2 (9.0-21.6); Bilirubin, Total 0.8 mg/dL (0.0-1.1); Ca. Corrected For Albumin 8.4 mg/dL (8.4-10.2); Calcium * 8.8 mg/dL (7.9-10.9); Carbon Dioxide 27.2 mmol/L (24-32.6); Potassium 4.2 mmol/L (3.4-4.6); Total Protein 7.2 gm/dL (6.2-8.2)
[2016-08-03 16:58] LABS: Urine Appearance Clear; Urine Bilirubin Negative (NEGATIVE); Urine Blood 25 /ul (NEGATIVE); Urine Color Yellow; Urine Ketone 50 mg/dL (NEGATIVE); Urine Nitrite Negative (NEGATIVE); Urine Protein 100 mg/dL (NEGATIVE); Urine Specific Gravity >=1.030 SP.GR. (1.005-1.010); Urine Urobilinogen Normal (NORMAL)
[2016-08-03 16:59] LABS: Urine Bacteria TRACE; Urine WBC None Seen /hpf (0-5)
[2016-08-03] MEDS: NORMAL SALINE 1,000 ML IV PRN ×2 (17:49→23:12)
[2016-08-03] MEDS ORDERED: DIATRIZOATE MEGLU/DIATRIZO SOD 30 ML BTL PO ONE (18:15)
[2016-08-03] MEDS ORDERED: ONDANSETRON HCL/PF 2 MG/ML VIAL IV ONE (18:16)
[2016-08-03] MEDS ORDERED: DIATRIZOATE MEGLU/DIATRIZO SOD 30 ML BTL ONE (18:23)
[2016-08-03] MEDS ORDERED: ONDANSETRON HCL/PF 2 MG/ML VIAL ONE (18:29)
--- OUTSIDE RECORDS SUMMARY | 2016-08-03 21:31 | XMS REPORT | Continuity of Care Document ---
:1925 Demographics Phone Unavailable Preferred Language Unknown Marital Status Unknown Baptism Affiliation Unknown Race Unknown Ethnic Group Unknown Author Organization [facility] ([facility]) [place] [address] Phone [phone] Care Team Providers Name Role Phone Unavailable Primary Care Provider Unavailable Source Comments This disclosure is being made pursuant to the Care Everywhere program, applicable federal and state laws, and may not contain all informaitonavailable regarding this patient.[facility] ([facility]) Active Allergies and Adverse Reactions Not [...]
--- OUTSIDE RECORDS SUMMARY | 2016-08-03 21:31 | XMS REPORT | Continuity of Care Document ---
:1925 Author Organization [employer] [place] [address] Care Team Providers Name Role Phone Marianne Tiffany M Primary Care Provider [phone] Source Comments This disclosure is being made pursuant to the Invesdor program and maynot contain all information available regarding this patient.[employer] Active Allergies and Adverse Reactions No Known [...] Taken Blood Pressure 121/64 03/06/2014 10:28 AM SALES CONSULTING DIRECTOR Pulse 60 03/06/2014 10:28 AM SALES CONSULTING DIRECTOR Temperature - - Respiratory Rate - - Height 1.524 m (5') 03/06/2014 10:28 AM SALES CONSULTING DIRECTOR Weight 58.832 kg (129 lb 11.2 oz) 03/06/2014 10:28 AM SALES CONSULTING DIRECTOR Body Mass Index 25.33 03/06/2014 10:28 AM SALES CONSULTING DIRECTOR Oxygen Saturation - - Plan of Care [...]
--- NOTE | 2016-08-03 22:09 | HP ---
Chief Complaint - Chief Complaint Date of Service: 08/03/16 Time of Service: 21:57 Chief Complaint: Confused History of Present Illness: 89 years old female adm to the hospital with reports of nausea and vomiting for several weeks, she is a resident of an assisted living facility. Per ER pt was confused at the facility and was choking in the morning so she was sent to the ER.In ER CT ABD Pelvis: Dependent atelectasis bilaterally small 2mm-3mm nodular density within the left lung base. 06/19/[address] Abdomen and pelvic: Early apple core lesion within the proximal hepatic flexure, concerning for early neoplasm. Pt is schedule for colonoscopy with Dr Ybarra in a few weeks. On adm Lactic acid 3.5--->2.0, WBC 9.1 WNL, rectal temp 38.8.She was given IVF bolus and Rocephin in ER. PMH significant for colon cancer in 2013 had colon resection , iron deficiency anemia, Hypertension, diabetes, hyperlipidemia, depression , GERD and UTI. Plan of care discussed with pt she verbalized understanding and agree. - Patient's Past Medical History Patient History - Medical: Anemia, Anxiety, Diabetes Type 2, Depression, GERD, Hypothyroidism, Osteoarthritis, Osteoporosis, Renal Disease, UTI'S - Recurrent, Other Patient History - Cardiac/Respiratory: Bronchitis, Hypertension, Hyperlipidemia Patient History - Cancer: Colon Patient History - Surgical Procedures: Appendectomy, Colon Resection - 2013, Hysterectomy, Total Knee Replacement - left knee, T & A, Other - Tonsillectomy, vulvar biopsy Patient History - Other: None - Family History Mother Family History - Medical: , Diabetes Type 2 Father Family History - Medical: Family History - Cardiac/Respiratory: Coronary Heart Disease Brother Family History - Medical: Family History - Cardiac/Respiratory: Myocardial Infarction - Social History Living Situations: prison - [facility] Abuse History: No History of abuse Psych History: Hx of Anxiety, Hx of Depression Have you smoked in the past 12 months: No Do you dip or chew tobacco: No Patient requests Smoking Cessation Consult: No Alcohol Use: rarely Drug Use: none - Immunizations Immunizations Up to Date: Yes Hx Pneumococcal Vaccination: No History of Influenza Vaccine: Yes Review Of Systems (GEN) - Review of Systems Generalized/Overall Review: Present: No Symptoms Reported EENTM: Present: No Symptoms Reported Respiratory: Present: No Symptoms Reported Cardiac: Present: No Symptoms Reported Abdominal: Present: Nausea, Vomiting, Constipation Genitourinary: Present: No Symptoms Reported Musculoskeletal: Present: No Symptoms Reported Neurological: Present: No Symptoms Reported Skin: Present: No Symptoms Reported Endocrine: Present: No Symptoms Reported Immunizations: IMMUNIZATION HX Immunizations Up to Date Yes History of Influenza Vaccine Yes Hx Pneumococcal Vaccination No Allergies/Adverse Reactions: Allergies Allergy/AdvReac Type Severity Reaction Status Date / Time morphine Allergy Verified 08/03/16 15:22 propoxyphene napsylate Allergy Verified 08/03/16 15:22 [From [facility]] Home Medications: HOME MEDICATIONS Aspirin [Brant Chewable Aspirin] 81 mg PO DAILY 11/07/14 [Last Taken 08/03/16 08 :00] Cholecalciferol [Vitamin D] 5,000 unit PO DAILY 11/07/14 [Last Taken 08/03/16 17 :00] Metoprolol Succinate [Toprol Xl] 50 mg PO HS 11/07/14 [Last Taken 08/02/16 20:00 ] Acetaminophen [Tylenol] 1,000 mg PO Q6H PRN 01/23/15 [Last Taken Unknown] Losartan Potassium [Cozaar] 100 mg PO HS 01/23/15 [Last Taken 08/03/16 08:00] Omeprazole [Prilosec] 40 mg PO HS 12/21/15 [Last Taken 08/02/16 20:00] metFORMIN HCL [Glucophage] 1,000 mg PO BIDWM 12/21/15 [Last Taken 08/03/16 17:00 ] Beta-Carotene(A) W-C , E/Min [Ocuvite] 1 tab PO BID 06/20/16 [Last Taken 17:00] Betamethasone Dipropionate 1 appl TP 3XW 06/20/16 [Last Taken Unknown] Calcium Carbonate [Tums] 500 mg PO Q2H PRN 06/20/16 [Last Taken Unknown] Mirabegron [Myrbetriq] 25 mg PO DAILY 06/20/16 [Last Taken 08/03/16 08:00] Nystatin 15 gm TP PRN PRN 06/20/16 [Last Taken Unknown] Polyethylene Glycol 3350 [Miralax] 17 gm PO TID PRN 06/20/16 [Last Taken Unknown ] Propylene Glycol/Peg 400 [Systane 0.3-0.4% Eye Drops] 1 drop EACHEYE BID [Last Taken 08/03/16 08:00] traZODone HCL [Desyrel] 100 mg PO HS 06/20/16 [Last Taken 08/02/16 20:00] Ondansetron [Zofran Odt] 8 mg PO Q4H PRN 08/03/16 [Last Taken Unknown] Exam - Exam Vital Signs: Vital Signs - Last Taken Temp 38.8 C H 08/03/16 16:58 Pulse 85 08/03/16 19:10 Resp 15 08/03/16 19:10 BP 126/56 08/03/16 19:10 Pulse Ox 93 08/03/16 19:10 Constitutional: Present: Alert, Oriented x3, Cooperative, Well developed, No distress, Elderly ENT Exam: Present: hard of hearing - uses hearing aids, moist mucous membranes Eye Exam: bilateral eye: PERRL Neck: Present: full range of motion Back Exam: Present: normal inspection Breasts: Present: Exam deferred Respiratory: Present: chest non-tender, lungs clear, normal breath sounds, no respiratory distress, no accessory muscle use Cardiovascular/Chest: Present: normal peripheral pulses, regular rate, rhythm, no chest tenderness, no edema, no gallop Peripheral Pulses: dorsalis-pedis (R): 2+, dorsalis-pedis (L): 2+ Abdomen: Present: Normal bowel sounds, soft, nontender, nondistended, no rebound tenderness, no hepatospenomegaly /Rectal: Present: Exam deferred Extremity: Present: normal range of motion, non-tender, normal inspection, no pedal edema, no calf tenderness Skin Exam: Present: normal color, warm/dry Neurologic: Present: oriented x 3 Appearance: Present: appropriate appearance Eye contact: Present: cooperative, good eye contact Thoughts: Present: normal thought pattern Diagnostic Studies: Laboratory Results WBC 9.1 K/mm3 (4.0-10.5) 08/03/16 15:36 RBC 4.06 M/mm3 (4.2-5.4) L 08/03/16 15:36 Hgb 12.6 gm/dL (12.5-16.0) 08/03/16 15:36 Hct 35.3 % (37.0-47.0) L 08/03/16 15:36 MCV 86.9 fl (78-100) 08/03/16 15:36 MCH 31.0 pg (27-31) 08/03/16 15:36 MCHC 35.7 g/dl (32-36) 08/03/16 15:36 RDW 12.8 % (11.5-14.0) 08/03/16 15:36 Plt Count 202 K/mm3 (150-450) 08/03/16 15:36 MPV 9.7 fl (6.0-9.5) H 08/03/16 15:36 Immature Gran % (Auto) 0.40 % (0.001-0.429) 08/03/16 15:36 Immature Gran # (Auto) 0.04 K/mm3 (0.000-0.0310) H 08/03/16 15:36 Neutrophils % 88.7 % (42-75.0) H 08/03/16 15:36 Lymphocytes % 8.1 % (20-51) L 08/03/16 15:36 Monocytes % 2.5 % (0.0-9) 08/03/16 15:36 Eosinophils % 0.1 % (0.0-3.0) 08/03/16 15:36 Basophils % 0.2 % (0.0-1.0) 08/03/16 15:36 Nucleated RBC % 0.0 k/mm3 (0-1) 08/03/16 15:36 Neutrophils # 8.0 K/mm3 (1.3-6.0) H 08/03/16 15:36 Lymphocytes # 0.7 k/mm3 (1.5-3.5) L 08/03/16 15:36 Monocytes # 0.2 k/mm3 (0.0-1.0) 08/03/16 15:36 Eosinophils # 0.0 k/mm3 (0.0-0.7) 08/03/16 15:36 Absolute Basophils 0.0 k/mm3 (0.0-0.1) 08/03/16 15:36 Sodium 139 mmol/L (132-142) 08/03/16 15:36 Plasma Sodium 141 mmol/L (130-142) 08/03/16 15:36 Potassium 4.2 mmol/L (3.4-4.6) 08/03/16 15:36 Chloride 100 mmol/L (97-106) 08/03/16 15:36 Carbon Dioxide 27.2 mmol/L (24-32.6) 08/03/16 15:36 Anion Gap 16.0 mmol/L (6.8-13.8) H 08/03/16 15:36 BUN 20 mg/dL (3-23) 08/03/16 15:36 Creatinine 1.10 mg/dL (0.4-1.4) 08/03/16 15:36 Est GFR (Non-Af Amer) 50 mL/min (60-130) L 08/03/16 15:36 BUN/Creatinine Ratio 18.2 (9.0-21.6) 08/03/16 15:36 Random Glucose 246 mg/dL (70-110) H 08/03/16 15:36 Lactic Acid, Venous 2.0 mmol/L (0.4-1.9) H 08/03/16 20:15 Calcium 8.8 mg/dL (7.9-10.9) 08/03/16 15:36 Calcium Adj for Albumin 8.4 mg/dL (8.4-10.2) 08/03/16 15:36 Total Bilirubin 0.8 mg/dL (0.0-1.1) 08/03/16 15:36 AST 17 U/L (0-48) 08/03/16 15:36 ALT 19 U/L (19-67) 08/03/16 15:36 Alkaline Phosphatase 56 U/L (50-170) 08/03/16 15:36 Total Protein 7.2 gm/dL (6.2-8.2) 08/03/16 15:36 Albumin 4.1 gm/dl (3.4-5.0) 08/03/16 15:36 Amylase 57 U/L (25-115) 08/03/16 15:36 Lipase 76 U/L (73-393) 08/03/16 15:36 Urine Color Yellow 08/03/16 16:30 Urine Appearance Clear 08/03/16 16:30 Urine pH 6.0 pH (5.0-7.0) 08/03/16 16:30 Ur Specific [place] >=1.030 SP.GR. (1.005-1.010) 08/03/16 16:30 Urine Protein 100 mg/dL (NEGATIVE) H 08/03/16 16:30 Urine Glucose (UA) >=1000 mg/dL (NEGATIVE) H 08/03/16 16:30 Urine Ketones 50 mg/dL (NEGATIVE) 08/03/16 16:30 Urine Blood 25 /ul (NEGATIVE) H 08/03/16 16:30 Urine Nitrate Negative (NEGATIVE) 08/03/16 16:30 Urine Bilirubin Negative mg/dl (NEGATIVE) 08/03/16 16:30 Prot Sulfosalicylic Acd 3+ mg/dL (0) H 08/03/16 16:30 Urine Urobilinogen Normal EU/dl (NORMAL) 08/03/16 16:30 Ur Leukocyte Esterase Negative /ul (NEGATIVE) 08/03/16 16:30 Urine RBC 5-10 /hpf (0-5) H 08/03/16 16:30 Urine WBC None seen /hpf (0-5) 08/03/16 16:30 Ur Epithelial Cells 0-5 /hpf (0-5) 08/03/16 16:30 Urine Bacteria Trace (NONE) 08/03/16 16:30 Urine Culture Comments Culture to follow 08/03/16 16:30 08/03/16 CT ABD Pelvis: Dependent atelectasis bilaterally small 2mm-3mm nodular density within the left lung base. Assessment/Plan - Narrative Narrative: Sepsis secondary to UTI On adm Rectal temp 38.8, lactic acid 3.5-->2.0, WBC 9.1 Dose Rocephin given in ER and will continue while repeated urine culture pending Blood culture and urine culture pending IVF bolus and continue IVF Monitor CBC and lactic acid in the morning Urinary tract infection- seen on urinalysis Urine culture pending Plan same as #1 Diabetes On adm BG 249 Accu-check AC+HS and low dose SSI Resume home dose of medications Consistent carb diet 04/2016 A1C 9.0 Colon cancer 2013 S/P colon resection 06/2016 CT Abd pelvic: Probable early apple core lesion within the proximal hepatic flexure, concerning for early neoplasm 08/03/16 CT ABD Pelvis: Dependent atelectasis bilaterally small 2mm-3mm nodular density within the left lung base. Pt have schedule colonoscopy with Dr Ybarra Hypertension On adm BP 126/56 Monitor vitals signs May resume home dose of medications Code status :DNR VTE ppx: SCD and ambulate GI ppx: protonix Anticipate discharge 0-1 day and follow up with Dr. Ybarra for scheduled colonoscopy Time 30 minutes - Assessment/Plan (1) Sepsis secondary to UTI Problem: Acute (2) Urinary tract infection Problem: Acute (3) Colon cancer Problem: Resolved Qualifiers: (4) Diabetes mellitus, type II Problem: Chronic (5) Hypertension Problem: Chronic Qualifiers: Hypertension type: essential hypertension Qualified Code(s): I10 - Essential (primary) hypertension
[2016-08-03] MEDS ORDERED: MAGNESIUM HYDROXIDE 30 ML UDC PO ONE (23:09)
[2016-08-03] MEDS: INSULIN LISPRO 100 UNITS/ML VIAL SC SCH (23:36)
[2016-08-04 06:03] LABS: Hematocrit 30.8 % (37.0-47.0); Hemoglobin 10.8 gm/dL (12.5-16.0); Mean Cell Volume 88.5 fl (78-100); Mean Corpuscular Hgb Conc 35.1 g/dl (32-36); Mean Platelet Volume 9.4 fl (6.0-9.5); Neutrophil # 4.2 K/mm3 (1.3-6.0); Neutrophil % 60.6 % (42-75.0); Platelet Count 166 K/mm3 (150-450); Red Blood Count 3.48 M/mm3 (4.2-5.4); Red Cell Distribution Width 13.3 % (11.5-14.0); White Blood Count 6.9 K/mm3 (4.0-10.5)
[2016-08-04] MEDS ORDERED: CALCIUM CARBONATE 500 MG TAB.CHEW PO PRN (06:09)
[2016-08-04] MEDS ORDERED: NYSTATIN 15 APPL BTL TP PRN (06:09)
[2016-08-04] MEDS ORDERED: POLYETHYLENE GLYCOL 3350 119 GM BTL PO PRN (06:09)
[2016-08-04] MEDS ORDERED: ACETAMINOPHEN 500 MG TABLET PO PRN (06:10)
[2016-08-04] MEDS ORDERED: ONDANSETRON 8 MG TAB.RAPDIS PO PRN (06:10)
[2016-08-04] MEDS ORDERED: BETAMETHASONE VALERATE 15 APPL TUBE TP SCH (06:15)
[2016-08-04] MEDS: INSULIN LISPRO 100 UNITS/ML VIAL SC SCH ×2 (06:16→11:45)
[2016-08-04] MEDS: NORMAL SALINE 1,000 ML IV PRN (07:38)
[2016-08-04] MEDS ORDERED: BETA-CAROTENE(A) W-C , E/MIN 1 TAB TABLET PO SCH (09:00)
[2016-08-04] MEDS ORDERED: Myrbetriq 25 MG PO SCH (09:00)
[2016-08-04] MEDS ORDERED: ASPIRIN 81 MG TAB.CHEW PO SCH (09:00)
[2016-08-04] MEDS ORDERED: Systane 0.3-0.4% Eye Drops EACHEYE SCH (09:00)
[2016-08-04] MEDS ORDERED: CHOLECALCIFEROL 5,000 UNIT TABLET PO SCH (09:00)
[2016-08-04 10:28] VITALS: BP 138/60
--- NOTE | 2016-08-04 12:11 | DS ---
(1) Viral gastroenteritis Problem: Acute Description of Stay: ADMISSION DATE: 08.03.2016 DISCHARGE DATE: 08.04.2016 ADMISSION HPI by PHILYL Hobbs: 89 years old female adm to the hospital with reports of nausea and vomiting for several weeks, she is a resident of an assisted living facility. Per ER pt was confused at the facility and was choking in the morning so she was sent to the ER.In ER CT ABD Pelvis: Dependent atelectasis bilaterally small 2mm-3mm nodular density within the left lung base. 06/19/[address] Abdomen and pelvic: Early apple core lesion within the proximal hepatic flexure, concerning for early neoplasm. Pt is schedule for colonoscopy with Dr Ybarra in a few weeks. On adm Lactic acid 3.5--->2.0, WBC 9.1 WNL, rectal temp 38.8.She was given IVF bolus and Rocephin in ER. PMH significant for colon cancer in 2013 had colon resection , iron deficiency anemia, Hypertension, diabetes, hyperlipidemia, depression , GERD and UTI. Plan of care discussed with pt she verbalized understanding and agree. HOSPITAL COURSE: Patient admitted to observation overnight with improvement in her symptoms and resolution of her AMS. Patient does not have evidence of a UTI on UA and thus, her antibiotics were discontinued. Patient was intravascularly volume depleted secondary to N/V/D and this was the likely etiology of her elevated lactic acid. Patient responded well to IVF hydration. Patient discharged back to [facility] in stable condition. Patient will follow-up with me in clinic within 1-2 weeks. NEW OR CHANGED MEDICATIONS: NONE DISCONTINUED MEDICATIONS: NONE Procedures Performed: none Discharge Disposition: [facility] Disposition: [facility] Condition: Stable Discharge Activity: Activity as tolerated Discharge Diet: Resume usual diet Referrals: Selma Martinez DO [Primary Care Provider] - Additional Patient Instructions (free text): Follow-up with PCP, Dr. Martinez, within 1-2 weeks on 08-18-16 @ 9:45 for hospital follow up. Please fax discharge information to [facility]. Complete Home Medications List: Complete Home Medication List: RX: Aspirin [Brant Chewable Aspirin] 81 mg PO DAILY 11/07/14 RX: Cholecalciferol [Vitamin D] 5,000 unit PO DAILY 11/07/14 RX: Metoprolol Succinate [Toprol Xl] 50 mg PO HS 11/07/14 RX: Acetaminophen [Tylenol] 1,000 mg PO Q6H PRN 01/23/15 RX: Losartan Potassium [Cozaar] 100 mg PO HS 01/23/15 RX: Omeprazole [Prilosec] 40 mg PO HS 12/21/15 RX: metFORMIN HCL [Glucophage] 1,000 mg PO BIDWM 12/21/15 RX: Beta-Carotene(A) W-C , E/Min [Ocuvite] 1 tab PO BID 06/20/16 RX: Betamethasone Dipropionate 1 appl TP 3XW 06/20/16 RX: Calcium Carbonate [Tums] 500 mg PO Q2H PRN 06/20/16 RX: Mirabegron [Myrbetriq] 25 mg PO DAILY 06/20/16 RX: Nystatin 15 gm TP PRN PRN 06/20/16 RX: Polyethylene Glycol 3350 [Miralax] 17 gm PO TID PRN 06/20/16 RX: Propylene Glycol/Peg 400 [Systane 0.3-0.4% Eye Drops] 1 drop EACHEYE BID 08/03 RX: traZODone HCL [Desyrel] 100 mg PO HS 06/20/16 RX: Ondansetron [Zofran Odt] 8 mg PO Q4H PRN 08/03/16
[2016-08-04] MEDS ORDERED: PANTOPRAZOLE SODIUM 40 MG TABLET.EC PO SCH (21:00)
[2016-08-04] MEDS ORDERED: METOPROLOL SUCCINATE 50 MG TABLET.SA PO SCH (21:00)
[2016-08-04] MEDS ORDERED: LOSARTAN POTASSIUM 50 MG TABLET PO SCH (21:00)
[2016-08-04] MEDS ORDERED: traZODone HCL 50 MG TABLET PO SCH (21:00)
== END 2016-08-04 13:21 | disposition home or self-care (01) ==
LOC: ER 15:10 → MS 21:27
PROVIDERS: ADMIT Nurse Practitioner; ATTEND Internal Medicine
DX: A08.4 Viral intestinal infection, unspecified (principal); E86.9 Volume depletion, unspecified; E11.8 Type 2 diabetes mellitus with unspecified complications; Z79.84 Long term (current) use of oral hypoglycemic drugs; I10 Essential (primary) hypertension
CPT/HCPCS: 36415; 74020; 74177; 80053; 81001; 82150; 83605; 83690; 85025; 87040; 87086; 93005; 96365; 96375; 97161; 99284; G0378; G8978; G8979; G8980

== ENCOUNTER 2016-08-24 08:36 | Day surgery (SDC) | payer MEDICARE, BC ==
[~2016-08-24 08:36] MED LIST: RINGERS SOLUTION,LACTATED 1,000 ML IV PRN
--- OUTSIDE RECORDS SUMMARY | 2016-08-24 08:39 | XMS REPORT | Continuity of Care Document ---
:1925 Author Organization [facility] [place] [address] Care Team Providers Name Role Phone Marianne Tiffany M Primary Care Provider [phone] Source Comments This disclosure is being made pursuant to the [employer] program and maynot contain all information available regarding this patient.[facility] Active Allergies and Adverse Reactions No Known [...] daily. Active Problems No known active problems Immunizations Name Dates Previously Given Next Due Influenza Split 02/08/2014,12/19/2011 Pneumococcal Polysaccharide-23 04/19/2007 Social History Tobacco Use Types Packs/Day Years Used Date Never Smoker Smokeless Tobacco: Never Used Last Filed Vital Signs Vital Sign Reading Time Taken Blood Pressure 121/64 03/06/2014 10:28 AM FRAME FEEDER Pulse 60 03/06/2014 10:28 AM FRAME [employer]ER Temperature - - Respiratory Rate - - Height 1.524 m (5') 03/06/2014 10:28 AM FRAME FE[employer]ER Weight 58.832 kg (129 lb 11.2 oz) 03/06/2014 10:28 AM FRAME FE[employer]ER Body Mass Index 25.33 03/06/2014 10:28 AM FRAME FE[employer]ER Oxygen Saturation - - Plan of Care [...]
--- OUTSIDE RECORDS SUMMARY | 2016-08-24 08:39 | XMS REPORT | Continuity of Care Document ---
:1925 Demographics Phone Unavailable Preferred Language Unknown Marital Status Unknown Gnosticism Affiliation Unknown Race Unknown Ethnic Group Unknown Author Organization [facility] ([facility]) Address [place] [address] Phone [phone] Care Team Providers Name Role Phone Unavailable Primary Care Provider Unavailable Source Comments This disclosure is being made pursuant to the Care Everywhere program, applicable federal and state laws, and may not contain all informaitonavailable regarding this patient.[facility] ([facility]) Active Allergies and Adverse Reactions Not [...]
[2016-08-24] MEDS ORDERED: RINGERS SOLUTION,LACTATED 1,000 ML IV ONE (09:58)
[2016-08-24] MEDS ORDERED: RINGERS SOLUTION,LACTATED 1,000 ML IV PRN (11:48)
[2016-08-24 14:18] VITALS: BP 149/80
--- NOTE | 2016-08-24 18:26 | OR ---
Operative Report - Dictated Report Narrative: OPERATIVE REPORT DATE OF OPERATION: 08/24/2016 PREOPERATIVE DIAGNOSIS: History of colon cancer. Lesion of the right colon on CT scan. POSTOPERATIVE DIAGNOSIS: Large neoplastic lesion in the right colon ( pathology pending) Two additional 4 mm polyps near the hepatic flexure OPERATION: Colonoscopy with biopsy of right colon lesion and hot biopsy forceps polypectomy 2 SURGEON: Quoc Ybarra MD ANESTHESIA: CINDI Erickson CRNA INDICATIONS FOR PROCEDURE: The patient is an 89-year-old female referred by Dr. Martinez. The patient had a previous transverse colon resection for cancer in 2013. She's had no subsequent surveillance. Recent CAT scan done for urologic complaints revealed a questionable lesion in the right colon. The patient's bother and son both have had colon cancer at age is 60 and 59 respectively. FINDINGS: Large neoplastic lesion in the right colon (pathology pending). Two additional 4 mm areas of polypoid change near the hepatic flexure. NARRATIVE OF PROCEDURE: The patient was identified in the holding area, and prior to the administration of anesthetic, a multidisciplinary timeout was observed. With the patient in the left lateral position and after the administration of intravenous sedation, the perineum was inspected. There was no evidence of pilonidal disease or skin breakdown. The external appearance of the anus was normal. Sphincter tone was good. The flexible fiberoptic colonoscope was inserted into the rectum which was insufflated with air. The rectal mucosa and submucosal vascular pattern appeared normal, the prep was seen to be complete. The scope was advanced through the sigmoid colon, up the descending colon, and around the splenic flexure where changes of a possible anastomosis were seen. The scope was advanced across the transverse colon, around the hepatic flexure where a large lobulated polypoid neoplastic lesion was appreciated. This encompassed approximately three quarters of the circumference of the colon. The scope was advanced through the lesion to the cecum, where the confluence of tenia and the ileocecal valve were identified. The mucosa at this level appeared normal. The scope was withdrawn through the lesion in the ascending colon. The lesion was biopsied several times. The area appeared hemostatic. Just distal to this near the hepatic flexure were 2 additional 4 mm there areas of polypoid change. These were biopsied and then thoroughly destroyed with electrocautery. Both sites were seen to be complete and hemostatic. The scope was then slowly withdrawn in a circular fashion so that all aspects of colonic mucosa were inspected. The colon was normal in caliber and course. The haustral architecture appeared well preserved throughout with no evidence of external compression. The mucosa and submucosal vascular pattern appeared normal, specifically there was no gross evidence to suggest colitis or inflammatory bowel disease and no AV malformations were seen. No diverticulosis was demonstrated. No additional polyps were encountered. The scope was gradually withdrawn to the level of the rectum. As much insufflated air as possible was removed. The scope was withdrawn from the patient and the procedure terminated. The patient tolerated the anesthetic and procedure well without complication and was transferred back to the ambulatory surgery area awake and in stable condition. The patient remained stable throughout a period of postoperative observation. She denied abdominal discomfort, was able to tolerate by mouth intake, and was up without assistance. I shared the operative findings with the patient and she was given copies of the photographs which appear in the medical record. She was discharged home with instructions not to engage in hazardous activity today , but may resume normal activity tomorrow, and advance diet as tolerated. She is to continue those medications as listed in the history and physical exam. I made arrangements to contact her with the biopsy reports and will make additional recommendations for treatment and follow-up based upon those results. I also scheduled an office appointment 09/01/2016 for her and her son to discuss further treatment options. Reviewed and electronically signed
== END 2016-08-24 08:37 | disposition home or self-care (01) ==
LOC: AMB 08:36
PROVIDERS: ATTEND Surgery
PROC: 0DBF8ZX Excision of Right Large Intestine, Via Natural or Artificial Opening Endoscopic, Diagnostic (ICD-10-PCS; 2016-08-24)
PROC: 0DBL8ZX Excision of Transverse Colon, Via Natural or Artificial Opening Endoscopic, Diagnostic (ICD-10-PCS; principal; 2016-08-24 10:45)
DX: D37.4 Neoplasm of uncertain behavior of colon (principal); D12.6 Benign neoplasm of colon, unspecified; I10 Essential (primary) hypertension; E11.9 Type 2 diabetes mellitus without complications; E78.5 Hyperlipidemia, unspecified; K21.9 Gastro-esophageal reflux disease without esophagitis; E55.9 Vitamin D deficiency, unspecified; F41.8 Other specified anxiety disorders; Z85.038 Personal history of other malignant neoplasm of large intestine; Z68.27 Body mass index [BMI] 27.0-27.9, adult

== ENCOUNTER 2017-02-15 05:06 | Emergency (ER) | payer MEDICARE, BC ==
--- NOTE | 2017-02-15 05:23 | ERNOTE ---
Medical Problem HPI - Narrative Date of Service: 02/15/17 - General Chief Complaint: General Assessment Time Seen by Provider: 02/15/17 05:19 Source: patient, EMS notes reviewed Exam Limitations: hard of hearing, dementia - Immun/Allergies/Home Medications Immunizations: IMMUNIZATION HX Immunizations Up to Date Yes History of Influenza Vaccine Yes Hx Pneumococcal Vaccination No Allergies/Adverse Reactions: Allergies morphine Adverse Reaction (Intermediate, Verified 02/15/17 05:08) Other Confusion propoxyphene napsylate [From Darvocet-N] Adverse Reaction (Intermediate, Verified 02/15/17 05:08) Other Confusion Home Medications: HOME MEDICATIONS Aspirin [Brant Chewable Aspirin] 81 mg PO DAILY 11/07/14 [Last Taken 08/03/16 08 :00] Metoprolol Succinate [Toprol Xl] 50 mg PO HS 11/07/14 [Last Taken 08/23/16 20:00 ] Acetaminophen [Tylenol] 1,000 mg PO Q6H PRN 01/23/15 [Last Taken Unknown] Losartan Potassium [Cozaar] 100 mg PO HS 01/23/15 [Last Taken 08/03/16 08:00] Omeprazole [Prilosec] 40 mg PO HS 12/21/15 [Last Taken 08/02/16 20:00] metFORMIN HCL [Glucophage] 1,000 mg PO BIDWM 12/21/15 [Last Taken 08/03/16 17:00 ] Beta-Carotene(A) W-C , E/Min [Ocuvite] 1 tab PO BID 06/20/16 [Last Taken 17:00] Betamethasone Dipropionate 1 appl TP 3XW 06/20/16 [Last Taken Unknown] Calcium Carbonate [Tums] 500 mg PO Q2H PRN 06/20/16 [Last Taken Unknown] Mirabegron [Myrbetriq] 25 mg PO DAILY 06/20/16 [Last Taken 08/03/16 08:00] Nystatin 15 gm TP PRN PRN 06/20/16 [Last Taken Unknown] Propylene Glycol/Peg 400 [Systane 0.3-0.4% Eye Drops] 1 drop EACHEYE BID [Last Taken 08/03/16 08:00] traZODone HCL [Desyrel] 100 mg PO HS 06/20/16 [Last Taken 08/02/16 20:00] Ondansetron [Zofran Odt] 8 mg PO Q4H PRN 08/03/16 [Last Taken Unknown] Cholecalciferol (Vitamin D3) [Vitamin D3] 5,000 unit PO DAILY 08/10/16 [Last Taken Unknown] Polyethylene Glycol 3350 [Miralax] 17 gm PO DAILY 08/10/16 [Last Taken Unknown] - History of Present History Narrative: This is an 89-year-old female from [facility]. I report the patient was walking slower than normal this morning on her way to the bathroom. On her way to the bathroom she also was incontinent of loose stool. The patient remembers this. She does not know what happened. This has not happened in the past. She has no complaints at this time. Review of Systems - Narrative Narrative: The patient has absolutely no symptoms. - Review of Systems Constitutional: Present: no symptoms reported EYE: Present: no symptoms reported ENT: Present: no symptoms reported Respiratory: Present: no symptoms reported. Absent: shortness of breath, cough , orthopnea, wheezing Cardiology: Present: no symptoms reported. Absent: chest pain, claudication Gastrointestinal/Abdominal: Present: no symptoms reported. Absent: nausea, vomiting, diarrhea Genitourinary: Present: no symptoms reported Musculoskeletal: Present: no symptoms reported Skin: Present: no symptoms reported Neurological: Present: no symptoms reported Endocrine: Present: no symptoms reported Hematologic/Lymphatic: Present: no symptoms reported Psych: Present: no symptoms reported All Other Systems: All systems neg except as marked - Patient's Past Medical History Patient History - Medical: Anemia, Anxiety, Diabetes Type 2, Depression, GERD, Hypothyroidism, Osteoarthritis, Osteoporosis, Renal Disease, UTI'S, Other Patient History - Cardiac/Respiratory: Bronchitis, Hypertension, Hyperlipidemia Patient History - Cancer: Colon Patient History - Surgical Procedures: Appendectomy, Colon Resection, Hysterectomy, Total Knee Replacement, T & A, Other Patient History - Other: None - Family History Mother Family History - Medical: , Diabetes Type 2 Family History - Cardiac/Respiratory: No pertinent hx Family History - Cancer: No pertinent family hx Father Family History - Medical: , No pertinent hx Family History - Cardiac/Respiratory: Coronary Heart Disease Family History - Cancer: No pertinent family hx Brother Family History - Medical: , No pertinent hx Family History - Cardiac/Respiratory: Myocardial Infarction Family History - Cancer: No pertinent family hx - Social History Living Situations: assisted living Abuse History: No History of abuse Psych History: Hx of Anxiety, Hx of Depression Smoking Status: Never smoker - Immunizations Immunizations Up to Date: Yes Hx Pneumococcal Vaccination: No History of Influenza Vaccine: Yes Physical Exam - Physical Exam General Appearance: Present: wd/wn, alert, no apparent distress Head Exam: Present: normal inspection, no evidence of injury Eye Exam: Normal inspection: bilateral Ears, Nose, Throat: Present: normal ENT inspection, normal pharynx Neck: Present: normal inspection, nontender Respiratory: Present: no respiratory distress, normal breath sounds, lungs clear Cardiovascular/Chest: Present: regular rate, rhythm, no murmur Gastrointestinal/Abdominal: Present: normal bowel sounds, nontender, soft Back Exam: Present: normal inspection, no CVA tenderness Extremity Exam: Present: normal inspection, non-tender Neurological Exam: Present: alert, normal mood/affect, no motor/sensory deficits Skin Exam: Present: normal color, warm/dry Lymphatic Exam: Present: no adenopathy ED Progress - Results and Orders Patient's Lab Results:: I have reviewed the patient's lab results. - Vital Signs Patient's Vital Signs:: I have reviewed the patient's vital signs. Vital Signs: Vital Signs 02/15/17 05:09 Temperature 36.9 C Pulse Rate 81 Respiratory 13 Rate Blood Pressure 168/71 O2 Sat by Pulse 93 Oximetry - X-Ray X-Ray #1 X-Ray: chest Interpretation: Interp. by me X-ray Comments: No acute cardiopulmonary disease - Progress/Reassessment Chief Complaint: General Assessment Progress:: Unchanged Progress Note-Subjective: 02/15/17 07:33 Patient presently has no complaints. She sleeping soundly. Plan - Plan Plan: The patient was brought in for incontinence of stool. This is not a sign of an acute stroke. She was also brought in for walking a bit slower than usual. Electrolytes and CBC did not demonstrate any significant abnormalities. I did obtain a chest x-ray and a blood gas as the patient was saturating 92% on room air. She does have a decreased PaO2 however she is also 89 years old. I highly suspect that this is where she normally runs. I think he would do this patient this service to admit her to the hospital or perform significantly more testing on her. Therefore she is released back to her facility. He is to follow-up with her family doctor Departure Clinical Impression: Weakness - Departure Disposition: [facility] self-[facility] Condition: Good Instructions: Weakness, [id number] Additional Instructions: As we discussed the tests and studies done here in the emergency department did not identify a definite cause for your symptoms. This does not mean that there is nothing wrong, only that I do not have evidence of something severe by the testing we have done here. Since this was just a single episode I think it is reasonable for you to go back to your facility and see how things go. Certainly if you keep having episodes like this he will need to come back to the emergency department for evaluation. Call your family doctor and set up a follow-up appointment. If you develop any new concerning symptoms he should return to the ER immediately Referrals: Selma Martinez DO [Primary Care Provider] -
[2017-02-15 05:37] LABS: Hematocrit 34.9 % (37.0-47.0); Hemoglobin 12.2 gm/dL (12.5-16.0); Mean Cell Volume 87.3 fl (78-100); Mean Corpuscular Hemoglobin 30.5 pg (27-31); Mean Platelet Volume 9.6 fl (6.0-9.5); Neutrophil # 8.3 K/mm3 (1.3-6.0); Neutrophil % 79.1 % (42-75.0); Platelet Count 215 K/mm3 (150-450); Red Cell Distribution Width 12.1 % (11.5-14.0); White Blood Count 10.5 K/mm3 (4.0-10.5)
[2017-02-15 05:49] LABS: Urine Bilirubin Negative (NEGATIVE); Urine Blood Negative /ul (NEGATIVE); Urine Ketone Negative (NEGATIVE); Urine Nitrite Negative (NEGATIVE); Urine Protein Negative (NEGATIVE); Urine Urobilinogen Normal (NORMAL)
[2017-02-15 05:53] LABS: Troponin I Less than 0.017 ng/ml (0.00-0.10)
[2017-02-15 05:58] LABS: Urine Appearance Clear; Urine Bacteria None Seen; Urine Color Yellow; Urine RBC None Seen /hpf (0-5); Urine WBC TRACE /hpf (0-5)
[2017-02-15 05:59] LABS: ALT 12 U/L (19-67); AST 13 U/L (0-48); Albumin * 3.3 gm/dl (3.4-5.0); Alkaline Phosphatase * 94 U/L (50-170); Anion Gap 12.2 mmol/L (6.8-13.8); BNP * 1253 pg/mL (5-550); BUN/Creatinine Ratio 27.7 (9.0-21.6); Bilirubin, Total 0.6 mg/dL (0.0-1.1); Blood Urea Nitrogen 28 mg/dL (3-23); Ca. Corrected For Albumin 9.4 mg/dL (8.4-10.2); Calcium * 9.2 mg/dL (7.9-10.9); Chloride 101 mmol/L (97-106); Glucose * 208 mg/dL (70-110); Potassium 4.2 mmol/L (3.4-4.6); Sodium 137 mmol/L (132-142); Total Protein 6.6 gm/dL (6.2-8.2)
[2017-02-15 07:47] VITALS: BP 163/45
== END 2017-02-15 08:24 | disposition home or self-care (01) ==
LOC: ER 05:06
DX: R54 Age-related physical debility (principal); D64.9 Anemia, unspecified; E11.9 Type 2 diabetes mellitus without complications; K21.9 Gastro-esophageal reflux disease without esophagitis; E03.9 Hypothyroidism, unspecified; M19.90 Unspecified osteoarthritis, unspecified site; N28.9 Disorder of kidney and ureter, unspecified; I10 Essential (primary) hypertension; E78.5 Hyperlipidemia, unspecified; Z85.038 Personal history of other malignant neoplasm of large intestine

== ENCOUNTER 2017-02-27 16:56 | Inpatient (IN) | payer MEDICARE, BC ==
--- NOTE | 2017-02-27 17:29 | ERNOTE ---
Medical Problem HPI - General Chief Complaint: General Assessment Time Seen by Provider: 02/27/17 17:03 Source: patient, family, EMS Exam Limitations: no limitations - Immun/Allergies/Home Medications Immunizations: IMMUNIZATION HX Immunizations Up to Date Yes History of Influenza Vaccine Yes Hx Pneumococcal Vaccination Yes Allergies/Adverse Reactions: Allergies morphine Adverse Reaction (Intermediate, Verified 02/15/17 05:08) Other Confusion propoxyphene napsylate [From Darvocet-N] Adverse Reaction (Intermediate, Verified 02/15/17 05:08) Other Confusion Home Medications: HOME MEDICATIONS Aspirin [Brant Chewable Aspirin] 81 mg PO DAILY 11/07/14 [Last Taken 08/03/16 08 :00] Metoprolol Succinate [Toprol Xl] 50 mg PO DAILY 11/07/14 [Last Taken 08/23/16 20 :00] Acetaminophen [Tylenol] 1,000 mg PO Q6H PRN 01/23/15 [Last Taken Unknown] Losartan Potassium [Cozaar] 100 mg PO DAILY 01/23/15 [Last Taken 08/03/16 08:00] Omeprazole [Prilosec] 40 mg PO HS 12/21/15 [Last Taken 08/02/16 20:00] metFORMIN HCL [Glucophage] 1,000 mg PO BIDWM 12/21/15 [Last Taken 08/03/16 17:00 ] Calcium Carbonate [Tums] 500 mg PO Q2H PRN 06/20/16 [Last Taken Unknown] Mirabegron [Myrbetriq] 25 mg PO DAILY 06/20/16 [Last Taken 08/03/16 08:00] Nystatin 15 gm TP PRN PRN 06/20/16 [Last Taken Unknown] Propylene Glycol/Peg 400 [Systane 0.3-0.4% Eye Drops] 1 drop EACHEYE BID [Last Taken 08/03/16 08:00] traZODone HCL [Desyrel] 100 mg PO HS 06/20/16 [Last Taken 08/02/16 20:00] Ondansetron [Zofran Odt] 4 mg PO Q4H PRN 08/03/16 [Last Taken Unknown] Cholecalciferol (Vitamin D3) [Vitamin D3] 5,000 unit PO DAILY 08/10/16 [Last Taken Unknown] Polyethylene Glycol 3350 [Miralax] 17 gm PO DAILY 08/10/16 [Last Taken Unknown] - History of Present History Narrative: Apparently sometime this morning, nor appears to be the 6-8 hour range prior to coming to the hospital, patient started to have slurred speech and some pronounced generalized weakness. 2 of the patient's sons are here and they state that her speech does indeed appear to be slow and she is not her usual perky self. Timing: other - the one son who talked to earlier states that it appears to be improving somewhat over her speech is still off Severity: mild Review of Systems - Review of Systems Constitutional: Present: See HPI EYE: Present: no symptoms reported ENT: Present: no symptoms reported Respiratory: Present: no symptoms reported Cardiology: Present: no symptoms reported Gastrointestinal/Abdominal: Present: no symptoms reported Genitourinary: Present: no symptoms reported Musculoskeletal: Present: no symptoms reported Skin: Present: no symptoms reported Neurological: Present: See HPI, weakness - generalized, other - mostly slow and somewhat slurred speech Endocrine: Present: no symptoms reported Hematologic/Lymphatic: Present: no symptoms reported Psych: Present: no symptoms reported - Patient's Past Medical History Patient History - Medical: Anemia, Anxiety, Diabetes Type 2, Depression, GERD, Hypothyroidism, Osteoarthritis, Osteoporosis, Renal Disease, UTI'S, Other Patient History - Cardiac/Respiratory: Bronchitis, Hypertension, Hyperlipidemia Patient History - Cancer: Colon Patient History - Surgical Procedures: Appendectomy, Colon Resection, Hysterectomy, Total Knee Replacement, T & A, Other Patient History - Other: None - Family History Mother Family History - Medical: , Diabetes Type 2 Family History - Cardiac/Respiratory: No pertinent hx Family History - Cancer: No pertinent family hx Father Family History - Medical: , No pertinent hx Family History - Cardiac/Respiratory: Coronary Heart Disease Family History - Cancer: No pertinent family hx Brother Family History - Medical: , No pertinent hx Family History - Cardiac/Respiratory: Myocardial Infarction Family History - Cancer: No pertinent family hx - Social History Living Situations: assisted living Abuse History: No History of abuse Psych History: Hx of Anxiety, Hx of Depression Alcohol Use: none Drug Use: none - Immunizations Immunizations Up to Date: Yes Hx Pneumococcal Vaccination: Yes History of Influenza Vaccine: Yes Physical Exam - Physical Exam General Appearance: Present: wd/wn, alert, no apparent distress Head Exam: Present: normal inspection Eye Exam: Normal inspection: bilateral, PERRL: bilateral Ears, Nose, Throat: Present: normal ENT inspection, H, normal pharynx Neck: Present: normal inspection, nontender Respiratory: Present: no respiratory distress, normal breath sounds, no accessory muscle use, chest nontender, lungs clear Cardiovascular/Chest: Present: regular rate, rhythm, no murmur, normal peripheral pulses Gastrointestinal/Abdominal: Present: normal bowel sounds, nontender, nondistended, soft, no organomegaly Rectal Exam: Present: deferred Back Exam: Present: normal inspection, normal range of motion Extremity Exam: Present: normal inspection, non-tender, no edema, normal range of motion Neurological Exam: Present: alert, oriented, normal mood/affect, no motor/ sensory deficits, flamer after lasting II-XII nml as tested, other - speech does appear to be slow and speech is somewhat slurred, however I'm not aware of her baseline Skin Exam: Present: normal color, warm/dry Lymphatic Exam: Present: no adenopathy ED Progress - Results and Orders Patient's Lab Results:: I have reviewed the patient's lab results. - Vital Signs Patient's Vital Signs:: I have reviewed the patient's vital signs. Vital Signs: Vital Signs 02/27/17 16:58 Temperature 36.5 C Pulse Rate 78 Respiratory 20 Rate Blood Pressure 198/73 O2 Sat by Pulse 95 Oximetry - EKG EKG: NSR EKG read: Reviewed by me - CT/Ultrasound CT/Ultrasound Narrative: CT of the head was reviewed - Progress/Reassessment Chief Complaint: General Assessment Plan - Plan Plan: While TPA was considered the patient came in 6-8 hours after the onset of symptomatology and she was well outside the window of reasonable administration of TPA. Patient will be admitted to a telemetry bed where we can undergo further testing as necessary. Departure Clinical Impression: CVA (cerebral vascular accident) Qualifiers: CVA mechanism: occlusion Precerebral and cerebral artery: other precerebral artery Qualified Code(s): I63.29 - Cerebral infarction due to unspecified occlusion or stenosis of other precerebral arteries - Departure Disposition: [facility] Condition: Fair
[2017-02-27 17:51] LABS: Hematocrit 33.6 % (37.0-47.0); Hemoglobin 11.7 gm/dL (12.5-16.0); Mean Cell Volume 87.3 fl (78-100); Mean Corpuscular Hemoglobin 30.4 pg (27-31); Mean Corpuscular Hgb Conc 34.8 g/dl (32-36); Mean Platelet Volume 9.4 fl (6.0-9.5); Neutrophil # 4.9 K/mm3 (1.3-6.0); Neutrophil % 64.1 % (42-75.0); Platelet Count 252 K/mm3 (150-450); Red Blood Count 3.85 M/mm3 (4.2-5.4); Red Cell Distribution Width 12.4 % (11.5-14.0); White Blood Count 7.7 K/mm3 (4.0-10.5)
[2017-02-27 17:54] LABS: Urine Appearance Clear; Urine Bilirubin Negative (NEGATIVE); Urine Blood Negative /ul (NEGATIVE); Urine Color Yellow; Urine Ketone Negative (NEGATIVE)
[2017-02-27 17:55] LABS: Urine Bacteria None Seen; Urine Nitrite Negative (NEGATIVE); Urine Protein Negative (NEGATIVE); Urine RBC None Seen /hpf (0-5); Urine Urobilinogen Normal (NORMAL); Urine WBC 0-5 /hpf (0-5)
[2017-02-27 18:03] LABS: Prothrombin Time (Patient) 10.3 Seconds (9.0-11.0)
[2017-02-27 18:06] LABS: Albumin * 3.3 gm/dl (3.4-5.0); Anion Gap 11.6 mmol/L (6.8-13.8); BUN/Creatinine Ratio 21.2 (9.0-21.6); Bilirubin, Total 0.4 mg/dL (0.0-1.1); Ca. Corrected For Albumin 9.5 mg/dL (8.4-10.2); Calcium * 9.3 mg/dL (7.9-10.9); Carbon Dioxide 29.6 mmol/L (24-32.6); INR 1.03 INR (0.90-1.10); Magnesium 1.3 mg/dL (1.2-2.8); Partial Thrombolplastin Time 23.7 Seconds (24-32); Potassium 4.2 mmol/L (3.4-4.6); Total Protein 6.6 gm/dL (6.2-8.2)
--- NOTE | 2017-02-27 19:35 | HP ---
Chief Complaint - Chief Complaint Date of Service: 02/27/17 Time of Service: 19:35 Chief Complaint: slurred speech and Weakness History of Present Illness: 89 years old female adm to the hospital with reports of slurred speech and weakness. PMH significant for diabetes, GERD. pt stated while at assisted living facility she felt weak and they noticed she had a slurred speech so they called EMS that brought her to the hospital. Pt stated she cant remember much of what happen prior to coming to the hospital. pt stated she thinks most of her s/s had since self resolved.Pt a poor historian additional information obtained from previous records and ER report. In ER CT head no acute intra- cranial abnormality. - Patient's Past Medical History Patient History - Medical: Anemia, Anxiety, Diabetes Type 2, Depression, GERD, Hypothyroidism, Osteoarthritis, Osteoporosis, Renal Disease, UTI'S, Other Patient History - Cardiac/Respiratory: Bronchitis, Hypertension, Hyperlipidemia Patient History - Cancer: Colon Patient History - Surgical Procedures: Appendectomy, Colon Resection, Hysterectomy, Total Knee Replacement, T & A, Other - left hand fracture Patient History - Other: None - Family History Mother Family History - Medical: , Diabetes Type 2 Family History - Cardiac/Respiratory: No pertinent hx Family History - Cancer: No pertinent family hx Father Family History - Medical: , No pertinent hx Family History - Cardiac/Respiratory: Coronary Heart Disease Family History - Cancer: No pertinent family hx Brother Family History - Medical: , No pertinent hx Family History - Cardiac/Respiratory: Myocardial Infarction Family History - Cancer: No pertinent family hx - Social History Living Situations: [facility] Abuse History: No History of abuse Psych History: Hx of Anxiety, Hx of Depression Does anyone smoke in the home?: No Have you smoked in the past 12 months: No Do you dip or chew tobacco: No Patient requests Smoking Cessation Consult: No Alcohol Use: none Drug Use: none - Immunizations Immunizations Up to Date: Yes Hx Pneumococcal Vaccination: Yes History of Influenza Vaccine: Yes Review Of Systems (GEN) - Review of Systems Generalized/Overall Review: Present: Weakness EENTM: Present: Nose Congestion Respiratory: Present: No Symptoms Reported Cardiac: Present: No Symptoms Reported Abdominal: Present: No Symptoms Reported Genitourinary: Present: No Symptoms Reported Musculoskeletal: Present: No Symptoms Reported Neurological: Present: Weakness Skin: Present: No Symptoms Reported Endocrine: Present: No Symptoms Reported Immunizations: IMMUNIZATION HX Immunizations Up to Date Yes History of Influenza Vaccine Yes Hx Pneumococcal Vaccination Yes Allergies/Adverse Reactions: Allergies Allergy/AdvReac Type Severity Reaction Status Date / Time morphine AdvReac Intermediate Other Verified 02/15/17 05:08 propoxyphene napsylate AdvReac Intermediate Other Verified 02/15/17 05:08 [From [facility]] Home Medications: HOME MEDICATIONS Aspirin [Brant Chewable Aspirin] 81 mg PO DAILY 11/07/14 [Last Taken 02/27/17 09 :00] Metoprolol Succinate [Toprol Xl] 50 mg PO DAILY 11/07/14 [Last Taken 02/27/17 09 :00] Acetaminophen [Tylenol] 1,000 mg PO Q6H PRN 01/23/15 [Last Taken Unknown] Losartan Potassium [Cozaar] 100 mg PO DAILY 01/23/15 [Last Taken 02/27/17 09:00] Omeprazole [Prilosec] 40 mg PO HS 12/21/15 [Last Taken 02/26/17] metFORMIN HCL [Glucophage] 1,000 mg PO BIDWM 12/21/15 [Last Taken 02/27/17 09:00 ] Calcium Carbonate [Tums] 500 mg PO Q2H PRN 06/20/16 [Last Taken Unknown] Mirabegron [Myrbetriq] 25 mg PO DAILY 06/20/16 [Last Taken 02/27/17 09:00] Nystatin 15 gm TP PRN PRN 06/20/16 [Last Taken Unknown] Propylene Glycol/Peg 400 [Systane 0.3-0.4% Eye Drops] 1 drop EACHEYE BID [Last Taken 02/27/17 09:00] traZODone HCL [Desyrel] 100 mg PO HS 06/20/16 [Last Taken 02/26/17] Ondansetron [Zofran Odt] 4 mg PO Q4H PRN 08/03/16 [Last Taken Unknown] Cholecalciferol (Vitamin D3) [Vitamin D3] 5,000 unit PO DAILY 08/10/16 [Last Taken 02/27/17 09:00] Polyethylene Glycol 3350 [Miralax] 17 gm PO DAILY 08/10/16 [Last Taken 02/27/17 09:00] Beta-Carotene(A) W-C , E/Min [Ocuvite] 1 tab PO BID 02/27/17 [Last Taken 0900] Betamethasone Valerate [Betamethasone Valerate Cream] 15 gm TP . 2X WEEKLY 03/05 [Last Taken Unknown] Exam - Exam Vital Signs: Vital Signs - Last Taken Temp 36.5 C 02/27/17 16:58 Pulse 74 02/27/17 18:57 Resp 12 02/27/17 18:57 BP 169/68 02/27/17 18:57 Pulse Ox 94 02/27/17 18:57 Constitutional: Present: Alert, Oriented x3, Cooperative, No distress, Elderly ENT Exam: Present: hard of hearing Eye Exam: bilateral eye: normal inspection Neck: Present: full range of motion Back Exam: Present: normal inspection Breasts: Present: Exam deferred Respiratory: Present: chest non-tender, normal breath sounds, no respiratory distress, no accessory muscle use Cardiovascular/Chest: Present: normal peripheral pulses, regular rate, rhythm, no chest tenderness, no edema Peripheral Pulses: dorsalis-pedis (R): 3+, dorsalis-pedis (L): 3+ Abdomen: Present: Normal bowel sounds, soft, nontender, nondistended, no rebound tenderness /Rectal: Present: Exam deferred Extremity: Present: normal range of motion, non-tender, normal inspection, no pedal edema Skin Exam: Present: normal color, warm/dry Neurologic: Present: oriented x 3 Appearance: Present: appropriate appearance, appropriate insight Eye contact: Present: cooperative Thoughts: Present: normal thought pattern Diagnostic Studies: Laboratory Results WBC 7.7 K/mm3 (4.0-10.5) 02/27/17 17:40 RBC 3.85 M/mm3 (4.2-5.4) L 02/27/17 17:40 Hgb 11.7 gm/dL (12.5-16.0) L 02/27/17 17:40 Hct 33.6 % (37.0-47.0) L 02/27/17 17:40 MCV 87.3 fl (78-100) 02/27/17 17:40 MCH 30.4 pg (27-31) 02/27/17 17:40 MCHC 34.8 g/dl (32-36) 02/27/17 17:40 RDW 12.4 % (11.5-14.0) 02/27/17 17:40 Plt Count 252 K/mm3 (150-450) 02/27/17 17:40 MPV 9.4 fl (6.0-9.5) 02/27/17 17:40 Immature Gran % (Auto) 0.30 % (0.001-0.429) 02/27/17 17:40 Immature Gran # (Auto) 0.02 K/mm3 (0.000-0.0310) 02/27/17 17:40 Neutrophils % 64.1 % (42-75.0) 02/27/17 17:40 Lymphocytes % 21.5 % (20-51) 02/27/17 17:40 Monocytes % 7.8 % (0.0-9) 02/27/17 17:40 Eosinophils % 5.9 % (0.0-3.0) H 02/27/17 17:40 Basophils % 0.4 % (0.0-1.0) 02/27/17 17:40 Nucleated RBC % 0.0 k/mm3 (0-1) 02/27/17 17:40 Neutrophils # 4.9 K/mm3 (1.3-6.0) 02/27/17 17:40 Lymphocytes # 1.7 k/mm3 (1.5-3.5) 02/27/17 17:40 Monocytes # 0.6 k/mm3 (0.0-1.0) 02/27/17 17:40 Eosinophils # 0.5 k/mm3 (0.0-0.7) 02/27/17 17:40 Absolute Basophils 0.0 k/mm3 (0.0-0.1) 02/27/17 17:40 PT 10.3 Seconds (9.0-11.0) 02/27/17 17:40 INR (Anticoag Therapy) 1.03 INR (0.90-1.10) 02/27/17 17:40 PTT (Roberto) 23.7 Seconds (24-32) L 02/27/17 17:40 Sodium 138 mmol/L (132-142) 02/27/17 17:40 Plasma Sodium 139 mmol/L (130-142) 02/27/17 17:40 Potassium 4.2 mmol/L (3.4-4.6) 02/27/17 17:40 Chloride 101 mmol/L (97-106) 02/27/17 17:40 Carbon Dioxide 29.6 mmol/L (24-32.6) 02/27/17 17:40 Anion Gap 11.6 mmol/L (6.8-13.8) 02/27/17 17:40 BUN 25 mg/dL (3-23) H 02/27/17 17:40 Creatinine 1.18 mg/dL (0.4-1.4) 02/27/17 17:40 Est GFR (Non-Af Amer) 46 mL/min (60-130) L 02/27/17 17:40 BUN/Creatinine Ratio 21.2 (9.0-21.6) 02/27/17 17:40 Random Glucose 132 mg/dL (70-110) H 02/27/17 17:40 Calcium 9.3 mg/dL (7.9-10.9) 02/27/17 17:40 Calcium Adj for Albumin 9.5 mg/dL (8.4-10.2) 02/27/17 17:40 Magnesium 1.3 mg/dL (1.2-2.8) 02/27/17 17:40 Total Bilirubin 0.4 mg/dL (0.0-1.1) 02/27/17 17:40 AST 11 U/L (0-48) 02/27/17 17:40 ALT 12 U/L (19-67) L 02/27/17 17:40 Alkaline Phosphatase 79 U/L (50-170) 02/27/17 17:40 Total Protein 6.6 gm/dL (6.2-8.2) 02/27/17 17:40 Albumin 3.3 gm/dl (3.4-5.0) L 02/27/17 17:40 Urine Color Yellow 02/27/17 17:40 Urine Appearance Clear 02/27/17 17:40 Urine pH 6.0 pH (5.0-7.0) 02/27/17 17:40 Ur Specific [place] 1.030 SP.GR. (1.005-1.010) 02/27/17 17:40 Urine Protein Negative mg/dL (NEGATIVE) 02/27/17 17:40 Urine Glucose (UA) Negative mg/dL (NEGATIVE) 02/27/17 17:40 Urine Ketones Negative mg/dL (NEGATIVE) 02/27/17 17:40 Urine Blood Negative /ul (NEGATIVE) 02/27/17 17:40 Urine Nitrate Negative (NEGATIVE) 02/27/17 17:40 Urine Bilirubin Negative mg/dl (NEGATIVE) 02/27/17 17:40 Urine Urobilinogen Normal EU/dl (NORMAL) 02/27/17 17:40 Ur Leukocyte Esterase Negative /ul (NEGATIVE) 02/27/17 17:40 Urine RBC None seen /hpf (0-5) 02/27/17 17:40 Urine WBC 0-5 /hpf (0-5) 02/27/17 17:40 Ur Epithelial Cells 0-5 /hpf (0-5) 02/27/17 17:40 Urine Bacteria None seen (NONE) 02/27/17 17:40 Urine Culture Comments No culture indicated 02/27/17 17:40 Assessment/Plan - Narrative Narrative: CVA vs TIA CT head no acute intracranial abnormality ? MRI head, echo, carotid duplex. Continue with tele EKG- noted Lipid panel and A1C pending PT/OT eval and treatment Continue with neuro-checks NPO until swallow eval and treat Diabetes Accu-check AC+HS and resume home medications NPO until after speech eval Hypertension On adm BP 183/77--->143/41 Continue to monitor VS Q shift and as indicated Continue with home medications Code status: DNR GI ppx: protonix VTE ppx: Ambulate and SCD Time 45 minutes, previous records reviewed and case discussed with Dr sargent - Assessment/Plan (1) CVA (cerebral vascular accident) Problem: Acute Qualifiers: CVA mechanism: occlusion Precerebral and cerebral artery: other precerebral artery Qualified Code(s): I63.29 - Cerebral infarction due to unspecified occlusion or stenosis of other precerebral arteries (2) Diabetes mellitus, type II Problem: Chronic (3) Hypertension Problem: Chronic Qualifiers: Hypertension type: essential hypertension Qualified Code(s): I10 - Essential (primary) hypertension
[2017-02-27] MEDS ORDERED: DEXTROSE 5%-NORMAL SALINE 1,000 ML IV SCH (19:45)
[2017-02-27] MEDS: DEXTROSE 5%-0.5 NORMAL SALINE 1,000 ML IV PRN (20:20)
[2017-02-27] MEDS ORDERED: CALCIUM CARBONATE 500 MG TAB.CHEW PO PRN (20:49)
[2017-02-27] MEDS ORDERED: ACETAMINOPHEN 500 MG TABLET PO PRN (20:49)
[2017-02-27] MEDS ORDERED: NYSTATIN 15 APPL BTL TP PRN (20:49)
[2017-02-27] MEDS ORDERED: ONDANSETRON 4 MG TAB.RAPDIS PO PRN (21:27)
[2017-02-27] MEDS: traZODone HCL 50 MG TABLET PO SCH (21:54)
[2017-02-27] MEDS: POLYVINYL ALCOHOL 150 DROP BTL EACHEYE SCH (21:55)
[2017-02-27] MEDS: PANTOPRAZOLE SODIUM 40 MG TABLET.EC PO SCH (21:55)
--- NOTE | 2017-02-28 05:43 | PN ---
Subjective - Date and Time Seen Date: 02/28/17 Time: 05:42 Subjective Narrative: patient seen today alert to self in bed, she denies discomfort and observed to have left side hemiparesis. Objective - Review of Systems Generalized/Overall Review: Reports: Weakness EENTM: Reports: No Symptoms Reported Respiratory: Reports: No Symptoms Reported Cardiac: Reports: No Symptoms Reported Abdominal: Reports: No Symptoms Reported Genitourinary Symptoms: Reports: No Symptoms Reported Musculoskeletal Complaints: Reports: No Symptoms Reported Neurological: Reports: Weakness Skin: Reports: No Symptoms Reported - Vitals Vitals: Last Vital Signs Temp 36.6 C 02/27/17 23:30 Pulse 85 02/28/17 01:59 Resp 20 02/27/17 23:30 BP 143/41 02/27/17 23:30 Pulse Ox 92 02/27/17 23:30 - Exam Constitutional: Present: Alert, No distress ENT Exam: Present: hard of hearing Neck: Present: full range of motion Breasts: Present: Exam deferred Respiratory: Present: chest non-tender, no respiratory distress Cardiovascular/Chest: Present: normal peripheral pulses, no chest tenderness, no edema Abdomen: Present: Normal bowel sounds, soft, nontender, nondistended /Rectal: Present: Exam deferred Extremity: Present: non-tender, normal inspection, no pedal edema, other - weakness leftside Skin Exam: Present: normal color, warm/dry, no cyanosis Neurologic: Present: abnormal gait, motor weakness Appearance: Present: appropriate insight, impaired recent memory Eye contact: Present: good eye contact Thoughts: Present: no apparent hallucination Assessment/Plan Plan Narrative: CVA vs TIA CT head no acute intracranial abnormality ? MRI head, echo, carotid duplex. Continue with tele EKG- noted Lipid panel and A1C pending PT/OT eval and treatment Continue with neuro-checks NPO until swallow eval and treat Diabetes Accu-check AC+HS and resume home medications NPO until after speech eval Hypertension On adm BP 183/77--->143/41 Continue to monitor VS Q shift and as indicated Continue with home medications Code status: DNR GI ppx: protonix VTE ppx: Ambulate and SCD Time 15 minutes and case discussed with Dr sargent - Problems/Diagnosis (1) CVA (cerebral vascular accident) Problem: Acute Qualifiers: CVA mechanism: occlusion Precerebral and cerebral artery: other precerebral artery Qualified Code(s): I63.29 - Cerebral infarction due to unspecified occlusion or stenosis of other precerebral arteries (2) Diabetes mellitus, type II Problem: Chronic (3) Hypertension Problem: Chronic Qualifiers: Hypertension type: essential hypertension Qualified Code(s): I10 - Essential (primary) hypertension
[2017-02-28 06:33] LABS: Chol/HDL Risk Ratio 6.2 mg/dL (3.3-4.4)
[2017-02-28] MEDS ORDERED: ASPIRIN 81 MG TAB.CHEW PO SCH (09:00)
[2017-02-28] MEDS ORDERED: METOPROLOL SUCCINATE 25 MG TABLET.SA PO SCH (09:00)
[2017-02-28] MEDS ORDERED: MIRABEGRON 25 MG PO SCH (09:00)
[2017-02-28] MEDS: POLYVINYL ALCOHOL 150 DROP BTL EACHEYE SCH ×2 (09:23→20:38)
[2017-02-28] MEDS: METOPROLOL SUCCINATE 50 MG TABLET.SA PO SCH (09:24)
[2017-02-28] MEDS: LOSARTAN POTASSIUM 50 MG TABLET PO SCH (09:25)
[2017-02-28] MEDS: CHOLECALCIFEROL 5,000 UNIT TABLET PO SCH (12:44)
[2017-02-28] MEDS: BETA-CAROTENE(A) W-C , E/MIN 1 TAB TABLET PO SCH ×2 (12:45→20:39)
[2017-02-28] MEDS: POLYETHYLENE GLYCOL 3350 119 GM BTL PO SCH (12:45)
[2017-02-28] MEDS: traZODone HCL 50 MG TABLET PO SCH (20:39)
[2017-02-28] MEDS: PANTOPRAZOLE SODIUM 40 MG TABLET.EC PO SCH (20:39)
[2017-02-28] MEDS: DEXTROSE 5%-0.5 NORMAL SALINE 1,000 ML IV PRN (20:47)
[2017-03-01] MEDS: LOSARTAN POTASSIUM 50 MG TABLET PO SCH (10:13)
[2017-03-01] MEDS: METOPROLOL SUCCINATE 50 MG TABLET.SA PO SCH (10:14)
[2017-03-01] MEDS ORDERED: LORazepam 0.5 MG TABLET PO ONE (11:00)
[2017-03-01] MEDS: POLYVINYL ALCOHOL 150 DROP BTL EACHEYE SCH ×2 (12:07→20:25)
[2017-03-01] MEDS: HYDROCHLOROTHIAZIDE 25 MG TABLET PO SCH (12:08)
[2017-03-01] MEDS: BETA-CAROTENE(A) W-C , E/MIN 1 TAB TABLET PO SCH ×2 (12:08→20:26)
[2017-03-01] MEDS: CHOLECALCIFEROL 5,000 UNIT TABLET PO SCH (12:08)
[2017-03-01] MEDS: CLOPIDOGREL BISULFATE 75 MG TABLET PO SCH (12:08)
[2017-03-01] MEDS: POLYETHYLENE GLYCOL 3350 119 GM BTL PO SCH (12:14)
--- NOTE | 2017-03-01 13:03 | PN ---
Subjective - Date and Time Seen Date: 03/01/17 Time: 13:01 Subjective Narrative: Patient seen and examined at bedside. Patient alert but drowsy and bit confused which is possibly related to the sedative she received prior to her MRAs this AM. Objective - Review of Systems Generalized/Overall Review: Reports: Weakness EENTM: Reports: No Symptoms Reported Respiratory: Reports: No Symptoms Reported Cardiac: Reports: No Symptoms Reported Abdominal: Reports: No Symptoms Reported Genitourinary Symptoms: Reports: No Symptoms Reported Musculoskeletal Complaints: Reports: No Symptoms Reported Neurological: Reports: Weakness Skin: Reports: No Symptoms Reported Endocrine: Reports: No Symptoms Reported Misc: All systems neg except as marked - Vitals Vitals: Last Vital Signs Temp 36.4 C L 03/01/17 10:33 Pulse 74 03/01/17 10:33 Resp 20 03/01/17 10:33 BP 186/71 03/01/17 10:33 Pulse Ox 96 03/01/17 10:33 - Exam Constitutional: Present: Alert, Cooperative, Elderly ENT Exam: Present: moist mucous membranes Respiratory: Present: lungs clear, normal breath sounds, no respiratory distress , no accessory muscle use Cardiovascular/Chest: Present: regular rate, rhythm Abdomen: Present: soft, nontender, nondistended Skin Exam: Present: normal color, warm/dry Neurologic: Present: facial droop - on left, other - Dysarthria present. Right upper and lower extremity strength was 5 out of 5. Left hemiparesis with left upper and lower extremity strength +4 out of 5. Eye contact: Present: cooperative, good eye contact. 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 Diffuse cerebral and cerebellar atrophy likely age-related. Chronic microvascular ischemic changes of the brain, stable. -MRI/MRA of the neck with and without contrast on 03/01/2017 showed: Atherosclerotic disease bilaterally right worse than left. Stenosis on the right measures less than 50%. No significant stenosis identified. -MRI/MRA of the head with and without contrast on 03/01/2017 showed: Occlusion of the right A1 segment with reconstitution of the anterior cerebral artery from the left. Occlusion of the right posterior cerebral artery.-The patients case was discussed with the stroke team/neurology at the [facility]. Due to the fact that the patient stroke is over 48 hours since onset, they would not recommend further intervention such as embolectomy or stent placement at this time. They would recommend continuing with maximal medical therapy. 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 The plan is for possible discharge tomorrow (03/03/2017) to significant ongoing therapies. - Problems/Diagnosis (1) Arterial ischemic stroke, DIRECTOR HAIR (posterior cerebral artery), right, acute Problem: Acute
[2017-03-01] MEDS: DEXTROSE 5%-0.5 NORMAL SALINE 1,000 ML IV PRN (14:15)
[2017-03-01] MEDS ORDERED: METOPROLOL TARTRATE 1 MG/ML AMPUL IV ONE (14:44)
[2017-03-01] MEDS: ATORVASTATIN CALCIUM 40 MG TABLET PO SCH (20:26)
[2017-03-01] MEDS: traZODone HCL 50 MG TABLET PO SCH (20:26)
[2017-03-01] MEDS: PANTOPRAZOLE SODIUM 40 MG TABLET.EC PO SCH (20:26)
[2017-03-01] MEDS: INSULIN LISPRO 100 UNITS/ML VIAL SC SCH (21:00)
[2017-03-02] MEDS: DEXTROSE 5%-0.5 NORMAL SALINE 1,000 ML IV PRN (06:31)
[2017-03-02] MEDS ORDERED: METOPROLOL SUCCINATE 50 MG TABLET.SA PO SCH (06:43)
[2017-03-02] MEDS: INSULIN LISPRO 100 UNITS/ML VIAL SC SCH ×4 (06:55→20:44)
[2017-03-02] MEDS ORDERED: 0.5 NORMAL SALINE 1,000 ML IV PRN (07:03)
--- NOTE | 2017-03-02 09:40 | ECHO ---
This report is available in the EMR
[2017-03-02] MEDS: ASPIRIN 81 MG TAB.CHEW PO SCH (10:02)
[2017-03-02] MEDS: METOPROLOL SUCCINATE 100 MG TABLET.SA PO SCH (10:02)
[2017-03-02] MEDS: CLOPIDOGREL BISULFATE 75 MG TABLET PO SCH (10:02)
[2017-03-02] MEDS: BETA-CAROTENE(A) W-C , E/MIN 1 TAB TABLET PO SCH ×2 (10:02→20:45)
[2017-03-02] MEDS: LOSARTAN POTASSIUM 50 MG TABLET PO SCH (10:03)
[2017-03-02] MEDS: HYDROCHLOROTHIAZIDE 25 MG TABLET PO SCH (10:03)
[2017-03-02] MEDS: POLYVINYL ALCOHOL 150 DROP BTL EACHEYE SCH ×2 (10:04→20:45)
[2017-03-02] MEDS: POLYETHYLENE GLYCOL 3350 119 GM BTL PO SCH (10:04)
[2017-03-02] MEDS: CHOLECALCIFEROL 5,000 UNIT TABLET PO SCH (11:38)
--- NOTE | 2017-03-02 12:34 | PN ---
Subjective - Date and Time Seen Date: 03/02/17 Time: 12:32 Subjective Narrative: Patient seen and examined at bedside. No acute issues overnight. No new issues or concerns this AM. Objective - Review of Systems Generalized/Overall Review: Reports: Weakness EENTM: Reports: No Symptoms Reported Respiratory: Reports: No Symptoms Reported Cardiac: Reports: No Symptoms Reported Abdominal: Reports: No Symptoms Reported Genitourinary Symptoms: Reports: No Symptoms Reported Musculoskeletal Complaints: Reports: No Symptoms Reported Neurological: Reports: Weakness Skin: Reports: No Symptoms Reported Endocrine: Reports: No Symptoms Reported Misc: All systems neg except as marked - Vitals Vitals: Last Vital Signs Temp 36.6 C 03/02/17 10:19 Pulse 74 03/02/17 10:19 Resp 20 03/02/17 10:19 BP 156/70 03/02/17 10:19 Pulse Ox 93 03/02/17 10:19 - Exam Constitutional: Present: Alert, Cooperative, No distress, Elderly ENT Exam: Present: moist mucous membranes Respiratory: Present: lungs clear, normal breath sounds, no respiratory distress , no accessory muscle use Cardiovascular/Chest: Present: regular rate, rhythm Abdomen: Present: soft, nontender, nondistended Skin Exam: Present: normal color, warm/dry Neurologic: Present: facial droop - left, other - Dysarthria present. Right upper and lower extremity strength was 5 out of 5. Left hemiparesis with left upper and lower extremity strength +4 out of 5. Eye contact: Present: cooperative, good eye contact. Absent: normal speech Assessment/Plan Plan Narrative: Acute right anterior pontine ischemic stroke with right DRAGLINE ENGINEER occlusion -Brain MRI without contrast completed on 02/28/2017 showed: New 4.9 x 4.8 mm area of restricted diffusion located in the anterior right jade near the pontomedullary junction without significant mass effect or hemorrhagic changes. Diffuse cerebral and cerebellar atrophy likely age-related. Chronic microvascular ischemic changes of the brain, stable. -MRI/MRA of the neck with and without contrast on 03/01/2017 showed: Atherosclerotic disease bilaterally right worse than left. Stenosis on the right measures less than 50%. No significant stenosis identified. -MRI/MRA of the head with and without contrast on 03/01/2017 showed: Occlusion of the right A1 segment with reconstitution of the anterior cerebral artery from the left. Occlusion of the right posterior cerebral artery.-The patients case was discussed with the stroke team/neurology at the [facility]. Due to the fact that the patient stroke is over 48 hours since onset, they would not recommend further intervention such as embolectomy or stent placement at this time. They would recommend continuing with maximal medical therapy. -Continue dual antiplatelet therapy with both aspirin and Plavix -Continue high-intensity statin with atorvastatin 40 mg daily -The patient will need ongoing PT, OT, COMPLETION ENGINEER evaluation and treatment. The plan is for possible discharge tomorrow (03/03/2017) to significant ongoing therapies. - Problems/Diagnosis (1) Arterial ischemic stroke, DRAGLINE ENGINEER (posterior cerebral artery), right, acute Problem: Acute
[2017-03-02] MEDS: ATORVASTATIN CALCIUM 40 MG TABLET PO SCH (20:45)
[2017-03-02] MEDS: traZODone HCL 50 MG TABLET PO SCH (20:45)
[2017-03-02] MEDS: PANTOPRAZOLE SODIUM 40 MG TABLET.EC PO SCH (20:46)
[2017-03-03 06:30] VITALS: BP 141/53
[2017-03-03] MEDS: INSULIN LISPRO 100 UNITS/ML VIAL SC SCH ×2 (07:37→11:27)
[2017-03-03] MEDS: POLYVINYL ALCOHOL 150 DROP BTL EACHEYE SCH (08:54)
[2017-03-03] MEDS: CLOPIDOGREL BISULFATE 75 MG TABLET PO SCH (08:54)
[2017-03-03] MEDS: BETA-CAROTENE(A) W-C , E/MIN 1 TAB TABLET PO SCH (08:54)
[2017-03-03] MEDS: LOSARTAN POTASSIUM 50 MG TABLET PO SCH (08:54)
[2017-03-03] MEDS: METOPROLOL SUCCINATE 100 MG TABLET.SA PO SCH (08:54)
[2017-03-03] MEDS: ASPIRIN 81 MG TAB.CHEW PO SCH (08:55)
[2017-03-03] MEDS: POLYETHYLENE GLYCOL 3350 119 GM BTL PO SCH (08:55)
--- NOTE | 2017-03-03 09:52 | DS ---
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 Martinez, will follow the patient while she is at [facility] Prescriptions (Any new or edited meds): Atorvastatin Calcium [Lipitor] 40 mg PO HS #30 tablet Clopidogrel Bisulfate [Plavix] 75 mg PO DAILY #30 tablet Hydrochlorothiazide [Hydrodiuril] 25 mg PO DAILY #30 tablet Metoprolol Succinate [Toprol Xl] 100 mg PO DAILY #30 tablet. Complete Home Medications List: Complete Home Medication List: Aspirin [Brant Chewable Aspirin] 81 mg PO DAILY 11/07/14 Acetaminophen [Tylenol] 1,000 mg PO Q6H PRN 01/23/15 Losartan Potassium [Cozaar] 100 mg PO DAILY 01/23/15 Omeprazole [Prilosec] 40 mg PO HS 12/21/15 metFORMIN HCL [Glucophage] 1,000 mg PO BIDWM 12/21/15 Calcium Carbonate [Tums] 500 mg PO Q2H PRN 06/20/16 Mirabegron [Myrbetriq] 25 mg PO DAILY 06/20/16 Nystatin 15 gm TP PRN PRN 06/20/16 Propylene Glycol/Peg 400 [Systane 0.3-0.4% Eye Drops] 1 drop EACHEYE BID traZODone HCL [Desyrel] 100 mg PO HS 06/20/16 Ondansetron [Zofran Odt] 4 mg PO Q4H PRN 08/03/16 Cholecalciferol (Vitamin D3) [Vitamin D3] 5,000 unit PO DAILY 08/10/16 Polyethylene Glycol 3350 [Miralax] 17 gm PO DAILY 08/10/16 Beta-Carotene(A) W-C , E/Min [Ocuvite] 1 tab PO BID 02/27/17 Betamethasone Valerate [Betamethasone Valerate Cream] 15 gm TP . 2X WEEKLY 03/05 Atorvastatin Calcium [Lipitor] 40 mg PO HS #30 tablet 03/03/17 Clopidogrel Bisulfate [Plavix] 75 mg PO DAILY #30 tablet 03/03/17 Hydrochlorothiazide [Hydrodiuril] 25 mg PO DAILY #30 tablet 03/03/17 Metoprolol Succinate [Toprol Xl] 100 mg PO DAILY #30 tablet.sa 03/03/17 Amb Orders for Discharge: Basic Metabolic Panel Time Frame: 1 Week, Facility: [facility] , Location: Nursing Units
[2017-03-03] MEDS ORDERED: MAGNESIUM HYDROXIDE 30 ML UDC PO ONE (09:59)
[2017-03-03] MEDS: HYDROCHLOROTHIAZIDE 25 MG TABLET PO SCH (10:09)
[2017-03-03] MEDS: CHOLECALCIFEROL 5,000 UNIT TABLET PO SCH (10:09)
== END 2017-03-03 13:16 | DRG 65 ==
LOC: ER 16:56 → MS 18:26 → OBSVTOIN 02-28 10:11
PROVIDERS: ADMIT Family Medicine; ATTEND Internal Medicine
PROC: 0T9B7ZZ Drainage of Bladder, Via Natural or Artificial Opening (ICD-10-PCS; principal; 2017-02-27)
PROC: B246ZZZ Ultrasonography of Right and Left Heart (ICD-10-PCS; 2017-03-01)
DX: I63.29 Cerebral infarction due to unspecified occlusion or stenosis of other precerebral arteries (principal); G81.94 Hemiplegia, unspecified affecting left nondominant side; R47.81 Slurred speech; E11.9 Type 2 diabetes mellitus without complications; I10 Essential (primary) hypertension; K21.9 Gastro-esophageal reflux disease without esophagitis; Z79.82 Long term (current) use of aspirin
CPT/HCPCS: 36415; 51701; 70450; 70544; 70549; 70551; 80053; 80061; 81001; 83036; 83735; 85025; 85610; 85730; 87081; 92526; 93005; 93306; 97110; 97116; 97163; 97166; 97535; 99285; G0378